=== PATIENT | male | born 1930 | race Caucasian/White ===

== ENCOUNTER 2016-10-04 01:50 | Inpatient (IN) | payer MEDICARE ==
[2016-10-04] MEDS ORDERED: IPRATROPIUM/ALBUTEROL 0.5-2.5 MG/3 ML AMPUL NEB ONE (02:00)
--- NOTE | 2016-10-04 02:00 | ER Document Report ---
ED General - General Stated Complaint: DIFFICULTY BREATHING Time Seen by Provider: 10/04/16 01:56 Notes: Patient is an 85-year-old male who presents with complaint of difficulty breathing that has gradually worsened over the last 24 hours. No fevers at home but when paramedics arrived his temp was 100.9. He did receive breathing treatments which did help. He does have a history of emphysema. He denies any chest pain. No abdominal pain. No leg pain or leg swelling. He does have a sternotomy scar which he says is related to having his pericardium removed in 2003. He is unsure why this was performed. He did receive Solu-Medrol in the ambulance. No other complaints at this time. TRAVEL OUTSIDE OF THE [place] IN LAST 30 DAYS: No - Related Data Allergies/Adverse Reactions: No Known Allergies Allergy (Verified 10/04/16 02:54) Home Medications: Current Home Medications Dutasteride 0.5 mg PO DAILY 10/04/16 [History] Glipizide [Glipizide Xl] 5 mg PO DAILY 10/04/16 [History] Mirabegron [Myrbetriq] 50 mg PO DAILY 10/04/16 [History] Nitroglycerin [Nitrostat] 0.4 mg SL ASDIR PRN 10/04/16 [History] Oxybutynin Chloride 5 mg PO QHS 10/04/16 [History] Potassium Chloride [K-Tab] 10 meq PO DAILY 10/04/16 [History] Past Medical History - Social History Smoking Status: Former Smoker Frequency of alcohol use: None Drug Abuse: None Family History: Reviewed & Not Pertinent - Past Medical History Cardiac Medical History: Reports: Hx Coronary Artery Disease, Hx Heart Attack - 12/02, stent placement, Hx Hypercholesterolemia, Hx Hypertension Pulmonary Medical History: Denies: Hx Tuberculosis Endocrine Medical History: Reports: Hx Diabetes Mellitus Type 2 Past Surgical History: Reports: Hx Cardiac Surgery - 2003 pacemaker, Hx Cholecystectomy, Hx Pacemaker, Hx Tonsillectomy - Immunizations Hx Diphtheria, Pertussis, Tetanus Vaccination: No Review of Systems - Review of Systems Notes: My Normal Review Basic REVIEW OF SYSTEMS: CONSTITUTIONAL : Temp of 100.9 inambulance EENT: Denies eye, ear, throat, or mouth pain or symptoms. Denies nasal or sinus congestion. CARDIOVASCULAR: Denies chest pain. RESPIRATORY: Difficulty breathing. GASTROINTESTINAL: Denies abdominal pain. Denies nausea, vomiting, or diarrhea. Denies constipation. Last BM: GENITOURINARY: Denies difficulty urinating, painful urination, burning, frequency, or blood in urine. MUSCULOSKELETAL: Denies neck or back pain or joint pain or swelling. SKIN: Denies rash or skin lesions. NEUROLOGICAL: Denies altered mental status or loss of consciousness. Denies headache. Denies weakness or paralysis or loss of use of either side. Denies problems with gait or speech. Denies sensory or motor loss. ALL OTHER SYSTEMS REVIEWED AND NEGATIVE. Physical Exam - Vital signs Vitals: Resp Pulse Ox 27 H 88 L 10/04/16 01:54 10/04/16 01:54 - Notes Notes: General Appearance: Well nourished, alert, cooperative, mild to moderate acute distress, no obvious discomfort. Vitals: reviewed, See vital signs table. Head: no swelling or tenderness to the head Eyes: PERRL, EOMI, Conjuctiva clear Mouth: No decreasd moisture Throat: No tonsillar inflammation, No airway obstruction, No lymphadenopathy Neck: Supple, no neck tenderness Lungs: Few scattered wheezes, No rales, No rhonci, No accessory muscle use, good air exchange bilaterally. Heart: Normal rate, Regular rythm, No murmur, no rub Abdomen: Normal BS, soft, No rigidity, No abdominal tenderness, No guarding, no rebound, no abdominal masses, no organomegaly Extremities: strength 5/5 in all extremities, good pulses in all extremities, no swelling or tenderness in the extremities, no edema. Skin: warm, dry, appropriate color, no rash Neuro: speech clear, oriented x 3, normal affect, responds appropriately to questions. Course - Re-evaluation Re-evalutation: 10/04/16 03:11 Patient is doing much improved on the BiPAP. He does have a fever as well as elevated white blood cell count and evidence of pneumonia on chest x-ray. He has had no recent hospital admissions. History is consistent with community- acquired pneumonia and therefore I have started him on Levaquin. I spoke with the hospitalist who agrees to admit the patient. Dictation of this chart was performed using voice recognition software; therefore, there may be some unintended grammatical errors. - Vital Signs Vital signs: Temp Pulse Resp BP Pulse Ox 20 127/74 H 95 10/04/16 02:01 10/04/16 02:01 10/04/16 02:01 - Laboratory Result Diagrams: 10/04/16 02:05 10/04/16 02:05 Laboratory results interpreted by me: 10/04/16 10/04/16 10/04/16 02:05 02:05 02:05 WBC 14.7 H RBC 5.61 H MCH 26.3 L RDW 17.4 H Seg Neuts % (Manual) 85 H Band Neutrophils % 8 H Lymphocytes % (Manual) 3 L Abs Neuts (Manual) 13.7 H Abs Lymphs (Manual) 0.4 L VBG pCO2 34.0 L Carbon Dioxide 21 L Glucose 254 H Alkaline Phosphatase 155 H Creatine Kinase 48 L - EKG Interpretation by Me Additional EKG results interpreted by me: 10/04/16 02:13 EKG is reviewed and interpreted by me. EKG shows a paced rhythm with rate of [address] segment changes consistent with a paced rhythm. NV interval is within normal range. QRS duration and QTc intervals are prolonged. Old EKG for comparison is from January 29, 2012. This old EKG is unfortunately not paced and therefore not like his EKG from today and therefore not a very good comparison. Discharge - Discharge Clinical Impression: Pneumonia Qualifiers: Pneumonia type: due to unspecified organism Laterality: bilateral Lung location : lower lobe of lung Qualified Code(s): J18.9 - Pneumonia, unspecified organism Condition: Stable Disposition: ADMITTED INPATIENT Admitting Provider: Hospitalist Unit Admitted: IMCU Referrals: DARLING JIMENES MD [Primary Care Provider] - Follow up as needed
[2016-10-04] MEDS: MAGNESIUM SULFATE/D5W 100 ML IV SCH ×2 (02:20→03:30)
[2016-10-04 02:22] LABS: VENOUS BLOOD HCO3 21.6 mmol/L (20-32); VENOUS BLOOD PH 7.42 (7.30-7.42)
[2016-10-04 02:32] LABS: HEMATOCRIT 45.6 % (37.9-51.0); HEMOGLOBIN 14.7 g/dL (13.5-17.0); HGB HCT DIFFERENCE -1.5; MEAN CORPUSCULAR HEMOGLOBIN 26.3 pg (27.0-33.4); MEAN CORPUSCULAR HGB CONC 32.3 g/dL (32.0-36.0); MEAN CORPUSCULAR VOLUME 81 fl (80-97); RED BLOOD COUNT 5.61 10^6/uL (4.35-5.55); RED CELL DISTRIBUTION WIDTH 17.4 % (11.5-14.0); WHITE BLOOD COUNT 14.7 10^3/uL (4.0-10.5)
[2016-10-04 02:35] LABS: ALANINE AMINOTRANSFERASE 28 U/L (21-72); ALBUMIN 3.9 g/dL (3.5-5.0); ALKALINE PHOSPHATASE 155 U/L (38-126); ANION GAP 13 (5-19); ASPARTATE AMINO TRANSFERASE 20 U/L (17-59); BILIRUBIN,DIRECT 0.3 mg/dL (0.0-0.4); BILIRUBIN,TOTAL 1.2 mg/dL (0.2-1.3); BLOOD UREA NITROGEN 19 mg/dL (7-20); CARBON DIOXIDE 21 mmol/L (22-30); CHLORIDE 107 mmol/L (98-107); CREATINE KINASE 48 U/L (55-170); CREATININE RESULT 1.02 mg/dL (0.52-1.25); GLUCOSE 254 mg/dL (75-110); POTASSIUM 4.2 mmol/L (3.6-5.0); SODIUM 140.9 mmol/L (137-145)
--- NOTE | 2016-10-04 02:45 | RADIOLOGY REPORT (SQ) ---
EXAM DESCRIPTION: CHEST SINGLE VIEW COMPLETED DATE/TIME: 10/04/2016 2:36 am REASON FOR STUDY: dyspnea, fever COMPARISON: Chest x-ray 01/28/2012, 12/01/2011. EXAM PARAMETERS: NUMBER OF VIEWS: One view. TECHNIQUE: Single frontal radiographic view of the chest acquired. RADIATION DOSE: NA LIMITATIONS: None. FINDINGS: LUNGS AND PLEURA: Hyperlucent lungs, suggestive of emphysema. Bibasilar ground-glass opac ities are noted. No pleural effusion or pneumothorax. MEDIASTINUM AND HILAR STRUCTURES: No masses. Contour normal. HEART AND VASCULAR STRUCTURES: Heart normal in size. No overt vascular congestion. BONES: No acute findings. HARDWARE: There is a left-sided pacemaker. Sternotomy wires are present. IMPRESSION: Emphysema. Bibasilar ground-glass opacities, may represent atelectasis or pneumonia. TECHNICAL DOCUMENTATION: JOB ID: [id number]
[2016-10-04 02:47] LABS: BAND NEUTROPHILS % (MANUAL) 8 % (3-5); BASOPHILS % (MANUAL) 0 % (0-2); CREATINE KINASE MB 1.39 ng/mL (<4.55); EOSINOPHILS % (MANUAL) 0 % (0-6); LYMPHOCYTES % (MANUAL) 3 % (13-45); TOTAL CELLS COUNTED 100; TROPONIN I 0.029 ng/mL
[2016-10-04 02:49] LABS: ANISOCYTOSIS 1+; HYPOCHROMASIA SLIGHT; POIKILOCYTOSIS SLIGHT; TOXIC GRANULATION SLIGHT
[2016-10-04 02:50] LABS: POLYCHROMASIA SLIGHT; TEAR DROP CELLS SLIGHT
[2016-10-04] MEDS ORDERED: LEVOFLOXACIN 750 MG/D5W RTU 150 ML IV ONE (02:52)
[2016-10-04] MEDS ORDERED: DEXTROSE 40% GEL 15 GM TUBE PO PRN ×2 (04:50)
[2016-10-04] MEDS ORDERED: DEXTROSE 50%-WATER 25 GM/50 ML DISP.SYRIN IV PRN ×2 (04:50)
[2016-10-04] MEDS ORDERED: GLUCAGON,HUMAN RECOMB 1 MG INJ IM PRN (04:50)
[2016-10-04] MEDS ORDERED: ALBUTEROL SULFATE 0.083% NEB 2.5 MG/3 ML AMPUL NEB PRN (04:52)
[2016-10-04] MEDS ORDERED: GUAIFENESIN SYRP 200 MG/10 ML UDC PO PRN (04:52)
--- NOTE | 2016-10-04 05:34 | PDOC H&P ---
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 No subjective fever or chills, but when paramedics arrived, his temperature was 100.9. He does admit to a dry cough, but denies nausea vomiting, chest or abdominal pain, diarrhea or dysuria. No leg pain or swelling. Received bronchodilator treatments along with Solu-Medrol en route by EMS but was still in fairly significant respiratory distress upon arrival. However, he has improved nicely with further treatment, including application of BiPAP. Currently resting quietly, pain-free. He denies any use of antibiotics or hospitalization the last 3 months. No prior intubation for respiratory difficulty. Patient has been discussed with emergency room physician who evaluated the patient. Hospitalized on our service for less than 24 hours January 29, 2012 for atypical chest pain. History and physical and discharge summary have been reviewed.. Laboratory results are listed in [facility] and are reviewed. X-ray summary results are listed below, with full report(s) reviewed. . EKG reviewed and compared to prior tracing from January 282011. Social history/personal habits: . 3 children. Retired. Former smoker, but none for the past several years. No alcohol or illicit drug use. No known drug allergies. Home medications initially autopopulated into clipkit may not accurately reflect patient's true medications, dosages, and/or frequencies. xray tech to reconcile medications. Unfortunately, patient not certain of all medications/dosages/frequencies. REVIEW OF SYSTEMS: Constitutional: See history and present illness. Eyes: Wears glasses. ENT: No swallowing problems or complaints. Denies hearing loss. Pulmonary: See history and present illness. Cardiovascular: No current complaints, including chest pain. Gastrointestinal: No current complaints, including nausea or vomiting. Skin: No current complaints, including rashes. Hematologic: Easy bruising. Neurologic: No current complaints, including numbness or tingling. Musculoskeletal: No current or chronic joint complaints, such as arthritis. Psychiatric: Denies anxiety or depression. Endocrine: No current complaints, including polyuria. Genitourinary: No current complaints, including dysuria. PHYSICAL EXAMINATION: 6 feet tall. 90.7 kg. BMI 27.1 kg/m. Pulse 75 and regular. Blood pressure 150/74. 99% saturation on 60% FiO2, BiPAP 12/6. Respirations are 21 and unlabored. Temperature 97.8. Thin otherwise well-developed elderly male appearing approximately his stated age. Pleasant awake alert and cooperative. Appears perhaps slightly fatigued. Mildly anxious, without agitation. Skin is warm and dry. No grossly obvious evidence of rash in areas of skin examined. No subcutaneous nodules palpated. Patient has scattered small very slightly raised erythematous lesions on his anterior lower legs and dorsum of feet. Patient states these have been present for "some time now." Denies itching or pain. Denies bug bites. No evidence of secondary infection of lesions. No blisters or vesicles. ENT: Hearing grossly normal to normal conversation. Tongue midline on protrusion pink and slightly tacky. Exam slightly limited by BiPAP mask with attaching straps. Eyes: No scleral icterus. Pupils equal and reactive to light at 4 mm. [employer] conjunctivae. Neck is supple and nontender to gentle active range of motion and palpation. Midline trachea. No palpable thyroid nodule mass enlargement or tenderness. Lymphatic: No palpable cervical or clavicular nodes. Neck and lymphatic exams limited by patient body habitus. Exam slightly limited by BiPAP mask with attaching straps. Psychiatric: Reasonable insight into acute and chronic medical issues. Oriented to time location and why here. Lungs: Auscultation reveals equal breath sounds bilaterally. No use of accessory respiratory muscles. Slightly coarse breath sounds in left base. Cardiovascular: Heart regular rate and rhythm, without gallop or rub. Subtle 1/ 6 systolic ejection murmur heard at the cardiac apex. No abdominal aortic bruits. No ankle or pedal edema. Palpable dorsalis pedis pulses. Difficult to evaluate for carotid bruit due to airway sounds from BiPAP device. Abdomen:soft slightly distended nontender with positive bowel sounds. Unable to adequately evaluate abdomen for masses or organomegaly due to distention. Extremities: Feet are warm and dry. No calf tenderness to compression. No grossly obvious visual evidence of calf swelling. Gentle manipulation of lower extremities fails to reveal any obvious evidence of injury or instability to knees hips or ankles. Small somewhat chronic appearing ulcer on the lateral aspect of his left great toe with a 2 cm or so surrounding area very mild inflammation. No foul odor. No crepitus fluctuance or expressible discharge. Patient states has been present for approximately 2 weeks. Of note, patient wearing loafers without socks. Neurologic: Moves upper extremities grossly normally. Patellar reflexes absent. Absent Babinski. Light touch is intact at feet. Dorsiflexion and plantarflexion of feet 5 / 5 and symmetric. Past Medical History Cardiac Medical History: Reports: Coronary Artery Disease, Myocardial Infarction - 12/02, stent placement, Hyperlipidema, Hypertension Denies: Atrial Fibrillation, Congestive Heart Failure, DVT, Pulmonary Embolism Pulmonary Medical History: Reports: Chronic Obstructive Pulmonary Disease (COPD) , Sleep Apnea - Noncompliant with CPAP Denies: Asthma, Tuberculosis EENT Medical History: Reports: Eyes - Wears glasses Denies: Ears, Throat Neurological Medical History: Denies: Hemorrhagic CVA, Ischemic CVA, Seizures Endocrine Medical History: Reports: Diabetes Mellitus Type 2 Denies: Diabetes Mellitus Type 1, Hyperthyroidism, Hypothyroidism Malignancy Medical History: Reports: Skin Cancer GI Medical History: Denies: Cirrhosis, Gastroesophageal Reflux Disease, Hepatitis, Peptic Ulcer Disease Musculoskeltal Medical History: Denies: Arthritis Skin Medical History: Reports: Other - Recently excised skin cancer. Psychiatric Medical History: Denies: Alcohol Dependency, Depression, General Anxiety Disorder, Substance Abuse, Tobacco Dependency Hematology: Reports: Other - Easy bruising Infectious Medical History: Denies: Clostridium Difficile, Hepatitis B, Hepatitis C, Methicillin- Resistant Staph Aureus Past Surgical History Past Surgical History: Reports: Cholecystectomy, Coronary Stent, Pacemaker - Pacemaker defibrillator, Tonsillectomy, Other - Pericardectomy 2003 Social History Information Source: Patient, Emergency Med Personnel, [facility] Records Lives with: Family Smoking Status: Former Smoker Frequency of Alcohol Use: None Hx Recreational Drug Use: No Drugs: None Hx Prescription Drug Abuse: No - Advance Directive Resuscitation Status: Do Not Resuscitate Surrogate healthcare decision maker:: Family History Family History: Reviewed & Not Pertinent Parental Family History Reviewed: Yes - Father of stroke. Uncertain cause of mother's . Children Family History Reviewed: Yes - Son with uncertain health problem. Sibling(s) Family History Reviewed.: Yes - Brother at 80 of a stroke. Medication/Allergy Home Medications: Aspirin [Aspirin 81 mg Chewable Tablet] 81 mg PO DAILY 12/01/11 Tamsulosin HCl 0.4 mg PO DAILY 12/01/11 Isosorbide Mononitrate [Imdur] 30 mg PO DAILY 01/29/12 Dutasteride 0.5 mg PO DAILY 10/04/16 Glipizide [Glipizide Xl] 5 mg PO DAILY 10/04/16 Mirabegron [Myrbetriq] 50 mg PO DAILY 10/04/16 Nitroglycerin [Nitrostat] 0.4 mg SL ASDIR PRN 10/04/16 Oxybutynin Chloride 5 mg PO QHS 10/04/16 Potassium Chloride [K-Tab ER] 10 meq PO DAILY 10/04/16 Albuterol Sulfate [Ventolin 0.083% Neb 2.5 mg/3 mL Ampul] 2.5 mg NEB RTQ4HP PRN vial.neb 10/07/16 Azithromycin [Zithromax 250 mg Tablet] 500 mg PO DAILY #5 tablet 10/07/16 Cefuroxime Axetil [Ceftin 250 mg Tablet] 250 mg PO BID #14 tablet 10/07/16 Prednisone [Deltasone 20 mg Tablet] 40 mg PO DAILY #3 tablet 10/07/16 Allergies/Adverse Reactions: No Known Allergies Allergy (Verified 10/04/16 02:54) Physical Exam Vital Signs: Temp Pulse Resp BP Pulse Ox 97.8 F 23 H 150/74 H 98 10/04/16 03:01 10/04/16 04:36 10/04/16 04:01 10/04/16 04:36 Intake & Output 10/03/16 10/04/16 10/05/16 00:59 00:59 00:59 Weight 90.718 kg Results Impressions: Chest X-Ray 10/04/16 01:56 IMPRESSION: Emphysema. Bibasilar ground-glass opacities, may represent atelectasis or pneumonia. Assessment & Plan - Diagnosis (1) Acute on chronic respiratory failure with hypoxemia Is this a current diagnosis for this admission?: YesPlan: Patient will be admitted under COPD exacerbation and pneumonia protocol. Incentive spirometry twice a day. Scheduled DuoNeb's. As needed albuterol nebs. Prednisone. Prevacid for gastritis prophylaxis. Continue BiPAP. Follow-up venous gas. Wean as tolerated. Antibiotics will consist of Rocephin and intravenous Zithromax.. I strongly encouraged patient to notify staff should patient feel that breathing is worsening. I have strongly encouraged patient not to get out of bed without notifying staff , to avoid a fall with injury. Knee high SCDs for DVT prophylaxis, along with subcutaneous Lovenox. Impression and plans were discussed with patient who concurs. Time spent in evaluation and management of patient: 68 critical-care minutes. (2) Basal pneumonia of both lungs Is this a current diagnosis for this admission?: Yes (3) COPD exacerbation Is this a current diagnosis for this admission?: Yes (4) DNR (do not resuscitate) Is this a current diagnosis for this admission?: YesPlan: Implications of DO NOT RESUSCITATE/DO NOT INTUBATE status discussed with patient. Discussed in layperson's terms. Implications understood. Patient is the health care decision maker. Patient conversation is lucid and appropriate. Patient desires DO NOT RESUSCITATE/DO NOT INTUBATE status. Will honor patient wishes. (5) Diabetes mellitus type 2 in nonobese Is this a current diagnosis for this admission?: YesPlan: Ice chips only while on BiPAP. Accu-Cheks with appropriate sliding scale coverage. Resume home medications as appropriate once these have been determined and reviewed. (6) Skin ulcer of left great toe Is this a current diagnosis for this admission?: YesPlan: Surgery consult. - Time Anticipated discharge: Home Within: within 72 hours - Inpatient Certification Based on my medical assessment, after consideration of the patient's comorbidities, presenting symptoms, or acuity I expect that the services needed warrant INPATIENT care.: Yes I certify that my determination is in accordance with my understanding of Medicare's requirements for reasonable and necessary INPATIENT services [42 CFR 412.3e].: Yes Medical Necessity: Significant Comorbidiites Make Outpatient Treatment Too Risky , Need Close Monitoring Due to Risk of Patient Decompensation, Need For IV Fluids, Need For Continuous Telemetry Monitoring, Need for Nebulizer Therapy and Monitoring of Response, Need for IV Antibiotics, Risk of Diagnosis Which Will Require Inpatient Eval/Care/Monitoring Post Hospital Care: D/C or Transfer Summary
[2016-10-04] MEDS: LANSOPRAZOLE 30 MG TAB.RAP.DR PO SCH (06:58)
[2016-10-04 08:36] LABS: VENOUS BLOOD BASE EXCESS -5.3 mmol/L; VENOUS BLOOD PCO2 38.5 mmHg (35-63); VENOUS BLOOD PH 7.33 (7.30-7.42)
[2016-10-04] MEDS: IPRATROPIUM/ALBUTEROL 0.5-2.5 MG/3 ML AMPUL NEB SCH ×3 (08:47→19:49)
[2016-10-04 08:56] LABS: ANION GAP 14 (5-19); BLOOD UREA NITROGEN 19 mg/dL (7-20); CALCIUM 8.8 mg/dL (8.4-10.2); CARBON DIOXIDE 18 mmol/L (22-30); CHLORIDE 104 mmol/L (98-107); CREATININE RESULT 0.97 mg/dL (0.52-1.25); GLUCOSE 363 mg/dL (75-110); POTASSIUM 4.6 mmol/L (3.6-5.0); SODIUM 135.9 mmol/L (137-145)
[2016-10-04] MEDS: CEFTRIAXONE 1 GM/D5W RTU 50 ML IV SCH (09:12)
[2016-10-04] MEDS: ENOXAPARIN SODIUM INJ 40 MG/0.4 ML DISP.SYRIN SUBCUT SCH (09:12)
[2016-10-04] MEDS: PREDNISONE 20 MG TABLET PO SCH (09:12)
--- NOTE | 2016-10-04 10:13 | EKG REPORT ---
SEVERITY:- ABNORMAL ECG - ATRIAL-SENSED VENTRICULAR-PACED RHYTHM : Confirmed by: Mykel Beck MD 04-Oct-2016 10:13:17
[2016-10-04] MEDS ORDERED: NITROGLYCERIN 0.4 MG/TAB 25 TAB/BOTTLE SL PRN (10:14)
[2016-10-04] MEDS: AZITHROMYCIN 500 MG in DEXTROSE 5%-WATER 250 ML IV SCH (10:15)
[2016-10-04] MEDS ORDERED: FUROSEMIDE INJ/PF 40 MG/4 ML SDV IV ONE (10:45)
--- NOTE | 2016-10-04 11:29 | PROGRESS NOTE E ---
Progress Note NAME: OG CASTELLANOS : 1930 AGE: 85Y DATE: 10/04/2016 ROOM: 308 SUBJECTIVE: The patient is lying in bed. He states he does feel better today than he did when he came in. The patient is winded but is able to have a discussion, just takes intermittent breaths extra. The patient denies any nausea or vomiting. No diarrhea, dizziness, chest pain. No fever or chills. The patient has been febrile. His blood pressures have been in a good range and the patient does not voice any other concerns at this time. REVIEW OF SYSTEMS: Rest of the review of systems negative. MEDICATIONS: Have been reviewed. OBJECTIVE: GENERAL: The patient is a very pleasant 85-year-old male who is awake and alert. He is oriented to person, place, time, and situation. He is verbal, conversational, ambulatory, and does not appear to be in any acute distress. VITAL SIGNS: Temperature 97.8, pulse 71, respirations 18, blood pressure 151/82, oxygen saturation is 92% on 2 L nasal cannula. SKIN: Warm and dry. No rash. Not diaphoretic. HEENT: Pupils equal, round, reactive to light and accommodation. Conjunctivae are pink. There is no JVP. CARDIOVASCULAR: Heart is regular. There is no murmur or rub. CHEST: Diminished. Fine basal crackles are noted. Symmetrical, unlabored. ABDOMEN: Soft, nontender, nondistended. BACK: No CVA tenderness or sacral edema. EXTREMITIES: No clubbing, cyanosis, or edema. PSYCHIATRIC: Appropriate affect. Pleasant mood. DIAGNOSTICS: Lab values are as follows: Hematology obtained on 10/04/2016: WBCs are 14.7, hemoglobin is 14.7, hematocrit 45.6, platelet count is 157,000. Chemistry obtained on 10/04/2016: Sodium is 135, potassium 4.6, chloride is 104, carbon dioxide 18, BUN 19, creatinine is 0.97, glucose 363, calcium is 8.8, magnesium is 2.0. Blood cultures obtained on 10/04/2016 reveal no growth. IMPRESSION AND PLAN: 1. COMMUNITY-ACQUIRED PNEUMONIA. Will continue current antibiotic coverage as well as pulmonary toilet and follow. 2. EMPHYSEMA. Will continue the patient's home medications. 3. [id number] HYPOXEMIC RESPIRATORY FAILURE. The patient overall is much improved. Have discontinued the BiPAP and will continue nasal cannula with a goal of 88 and 92%. 4. SEPSIS PRESENT ON ADMISSION. The patient had impressive bandemia and overall the patient is much more stable. 5. CORONARY ARTERY DISEASE. Will continue the patient's home medications. Given the patient's will diurese patient with Lasix and monitor. 6. DIABETES MELLITUS TYPE 2. Will continue Accu-Cheks once the patient is taking p.o., will do before meals and at bedtime and also have sliding scale coverage. 7. SKIN ULCER OF THE LEFT GREAT TOE. Do appreciate Surgicalist input with this. DISPOSITION: The patient is a DO NOT RESUSCITATE/DO NOT INTUBATE. Pending patient's symptomatology and diagnostic findings, will reevaluate in the a.m. Time spent on this followup including assessment, plan, physical examination, patient education, and review of records is 35 minutes. DICTATING PHYSICIAN: ARMANI GARRISON NP [id number] PHY#: [id number] ID: [id number] JOB#: [id number] ACCT: [id number] cc: > MTDD
[2016-10-04] MEDS: INSULIN LISPRO 100 UNIT/ML 3 ML VIAL SUBCUT PRN ×2 (12:03→16:41)
--- NOTE | 2016-10-04 18:59 | CONSULTATION REPORT E ---
Consultation Report NAME: OG CASTELLANOS : 1930 AGE: 85Y DATE: 10/04/2016 308 A TO: FROYLAN GAYLE M.D. FROM: SALEEM GUTIERREZ M.D. Requesting Physician REASON FOR CONSULTATION: Patient with small ulcer on the left big toe on the medial side. HISTORY OF PRESENT ILLNESS: This is an 85-year-old male with history of COPD, coronary artery disease, status post previous myocardial infarction, post pericardiectomy in 2003, obstructive sleep apnea with noncompliant CPAP, admitted through the emergency room for increasing shortness of breath and fever, noted pneumonia on an x-ray. Patient apparently had his left big toe bunion or a thickened callous on the left big toe on the medial aspect of the mid big toe done at a nail salon about two weeks ago. Patient claims it bled and then had a small ulcer. The ulcer has not increased in size and has not gotten any worse, and also appears to have not gotten any better. PAST MEDICAL HISTORY: 1. Myocardial infarction, coronary stent placement, hyperlipidemia, and hypertension. 2. History of COPD and sleep apnea. 3. EENT - wears eyeglasses and denies hearing problems. 4. Neurologic history - no CVA or seizures. 5. Endocrine - reports diabetes mellitus type 2. 6. Malignancy history - reports skin cancer. 7. GI history - denies any peptic ulcer disease or reflux. 8. Musculoskeletal - denies arthritis. 9. Hematology - easy bruisability. PAST SURGICAL HISTORY: 1. Cholecystectomy. 2. Coronary stent placement. 3. Pacemaker and AICD placement. 4. Tonsillectomy. 5. Pericardiectomy in 2003. SOCIAL HISTORY: Patient used to be a heavy smoker but stopped about 6 years ago. Denies alcohol or recreational drug use. Lives with his family. FAMILY HISTORY: *------* of a stroke. *------* of uncertain cause. MEDICATIONS: 1. Aspirin. 2. Tamsulosin. 3. Imdur. 4. Dutasteride. 5. Glipizide. 6. Mirabegron. 7. Nitrostat. 8. Oxybutynin chloride. 9. Potassium chloride. ALLERGIES: None known. PHYSICAL EXAMINATION: GENERAL: Well-developed, well-nourished, 85-year-old male, alert and oriented with some mild shortness of breath. NECK: Supple, no thyromegaly. LUNGS: Clear. Decreased breath sounds in the bases. HEART: Regular sinus rhythm. ABDOMEN: Soft, nontender. EXTREMITIES: Palpable ankle pulses. Left posterior tibial artery is palpable. Dorsalis pedis artery is faint. There is a superficial ulcer on the left big toe on the mid part. The opposite toe has a callous on the medial part. This was apparently the site that was scraped or sandpapered at the nail salon about two weeks ago on his left big toe. There is an ulcer about 8 mm in diameter that is relatively dry. The surrounding area is cool and pale, roughly about 5 mm in diameter. There is no drainage or tenderness at this site. The rest of the toe is nice and warm with good capillary refill. IMPRESSION: Ulceration along the left big toe that appears to be not infected at this time. Main concern is the vascularity, though it has not worsened in the past two weeks and it has not gotten any better. There is no evidence of definite infection at this time. I would just recommend for it to be cleansed with saline once a day. He [facility]. Also the concern is a possible eventual infection because of his diabetes. The antibiotic that he is getting right now for his pneumonia may be helping the ulcer on the left big toe. DICTATING PHYSICIAN: FROYLAN GAYLE M.D. [id number] PHY#: [id number] ID: [id number] JOB#: [id number] ACCT: [id number] cc:FORYLAN GAYLE M.D. >
[2016-10-04] MEDS: OXYBUTYNIN CHLORIDE 5 MG TABLET PO SCH (21:21)
[2016-10-05] MEDS: INSULIN LISPRO 100 UNIT/ML 3 ML VIAL SUBCUT PRN ×5 (02:32→21:33)
[2016-10-05] MEDS: LANSOPRAZOLE 30 MG TAB.RAP.DR PO SCH (06:44)
[2016-10-05 07:01] LABS: HEMATOCRIT 44.8 % (37.9-51.0); HGB HCT DIFFERENCE -2.8; MEAN CORPUSCULAR HGB CONC 31.3 g/dL (32.0-36.0); MEAN CORPUSCULAR VOLUME 83 fl (80-97); RED CELL DISTRIBUTION WIDTH 17.8 % (11.5-14.0)
[2016-10-05 07:31] LABS: ALANINE AMINOTRANSFERASE 26 U/L (21-72); ALBUMIN 3.8 g/dL (3.5-5.0); ALKALINE PHOSPHATASE 117 U/L (38-126); ANION GAP 12 (5-19); ASPARTATE AMINO TRANSFERASE 17 U/L (17-59); BILIRUBIN,DIRECT 0.3 mg/dL (0.0-0.4); BILIRUBIN,TOTAL 1.1 mg/dL (0.2-1.3); BLOOD UREA NITROGEN 23 mg/dL (7-20); CALCIUM 9.4 mg/dL (8.4-10.2); CARBON DIOXIDE 23 mmol/L (22-30); CHLORIDE 104 mmol/L (98-107); CREATININE RESULT 0.98 mg/dL (0.52-1.25); GLUCOSE 173 mg/dL (75-110); POTASSIUM 4.4 mmol/L (3.6-5.0); SODIUM 139.3 mmol/L (137-145)
[2016-10-05 07:35] LABS: BAND NEUTROPHILS % (MANUAL) 4 % (3-5); BASOPHILS % (MANUAL) 0 % (0-2); EOSINOPHILS % (MANUAL) 0 % (0-6); LYMPHOCYTES % (MANUAL) 3 % (13-45); TOTAL CELLS COUNTED 100
[2016-10-05 07:37] LABS: ANISOCYTOSIS SLIGHT; HYPOCHROMASIA SLIGHT
[2016-10-05] MEDS: IPRATROPIUM/ALBUTEROL 0.5-2.5 MG/3 ML AMPUL NEB SCH ×3 (08:37→20:09)
[2016-10-05] MEDS: ISOSORBIDE MONONITRATE 30 MG TAB.ER.24H PO SCH (11:17)
[2016-10-05] MEDS: ASPIRIN 81 MG TABLET, CHEWABLE PO SCH (11:18)
[2016-10-05] MEDS: PREDNISONE 20 MG TABLET PO SCH (11:18)
[2016-10-05] MEDS: TAMSULOSIN HCL 0.4 MG CAP.SR.24H PO SCH (11:18)
[2016-10-05] MEDS: POTASSIUM CHLORIDE 10 MEQ TABLET.SA PO SCH (11:18)
[2016-10-05] MEDS: GLIPIZIDE XL 5 MG TAB.ER.24 PO SCH (11:18)
[2016-10-05] MEDS: CEFTRIAXONE 1 GM/D5W RTU 50 ML IV SCH (11:19)
[2016-10-05] MEDS: ENOXAPARIN SODIUM INJ 40 MG/0.4 ML DISP.SYRIN SUBCUT SCH (11:25)
[2016-10-05] MEDS: DUTASTERIDE 0.5 MG CAPSULE PO SCH (11:28)
[2016-10-05] MEDS: AZITHROMYCIN 500 MG in DEXTROSE 5%-WATER 250 ML IV SCH (12:00)
[2016-10-05] MEDS ORDERED: PREDNISONE 20 MG TABLET PO SCH (13:00)
--- NOTE | 2016-10-05 14:23 | PROGRESS NOTE E ---
Progress Note NAME: OG CASTELLANOS : 1930 AGE: 85Y DATE: 10/05/2016 ROOM: 308 SUBJECTIVE: The patient is lying in bed. He states that he does feel better today than he did yesterday. He has had a strong cough but has not been able to produce much sputum. He denies any nausea, vomiting, diarrhea. No dizziness, chest pain. No fevers, chills. The patient has been afebrile, blood pressure has been in a good range. The patient does not voice any other concerns at this time. REVIEW OF SYSTEMS: Rest of review of systems negative. MEDICATIONS: Reviewed. OBJECTIVE: GENERAL: The patient is an 85-year-old male who is awake, alert and oriented to person, place, time, situation. He is verbal and conversational. Does not appear to be in any acute distress. VITAL SIGNS: Temperature is 97.8, pulse 72, respirations 16, blood pressure 166/59, oxygen saturation 95% on 1.5 L. SKIN: Warm and dry, no rashes. Not diaphoretic. HEENT: Pupils equal, round, reactive to light and accommodation. Conjunctivae pink. No JVD. CARDIOVASCULAR: Heart is regular. No murmur or rub. CHEST: Diminished, symmetrical and unlabored. ABDOMEN: Soft, nontender, nondistended. BACK: No CVA tenderness or sacral edema. EXTREMITIES: No clubbing, cyanosis, edema. PSYCHIATRIC: Appropriate affect. Pleasant mood. DIAGNOSTIC STUDIES: Lab values are as follows: Hematology obtained on 10/05/2016: WBCs are 20, hemoglobin is 14.0, hematocrit is 44.8, platelet count is 169,000. Chemistry obtained on 10/05/2016: Sodium is 139, potassium 4.4, chloride is 104, carbon dioxide 23, BUN 23, creatinine is 0.98, glucose 173, calcium is 9.8. Bilirubin is 1.1. AST 17, ALT is 16, alk phos 117, total protein 7.0, albumin 3.8. Blood cultures obtained on 10/04/2016 reveal no growth. IMPRESSION AND PLAN: 1. COMMUNITY ACQUIRED PNEUMONIA. The patient clinically appears much improved. Will continue pulmonary toilet and follow. 2. EMPHYSEMA. Will continue home medication. 3. VBAGB-RZ-LTTGVCH HYPOXEMIA AND RESPIRATORY FAILURE. Overall much improved. The patient is now tolerating nasal cannula. 4. SEPSIS PRESENT ON ADMISSION. The patient's bandemia has improved; however, white count has trended up. The patient has been afebrile. Overall appears much more improved. Will repeat labs in the morning and follow. 5. CORONARY ARTERY DISEASE. Will continue the patient's home medication. The patient was diuresed with Lasix which appears to have improved. 6. DIABETES MELLITUS TYPE 2. Will continue Accu-Cheks, as well as sliding scale coverage. 7. SKIN ULCERATION OF THE LEFT GREAT TOE. Do appropriate Surgical's input. DISPOSITION: The patient is a DO NOT RESUSCITATE/DO NOT INTUBATE. Pending the patient's symptomatology and diagnostic findings, will reevaluate in the a.m. Time spent on this followup including assessment and plan, physical examination, patient education, and review of records is 20 minutes. DICTATING PHYSICIAN: ARMANI GARRISON NP [id number] PHY#: [id number] ID: [id number] JOB#: [id number] ACCT: [id number] cc: >
--- NOTE | 2016-10-05 17:49 | PROGRESS NOTE E ---
Progress Note NAME: OG CASTELLANOS : 1930 AGE: 85Y DATE: 10/05/2016 ROOM: 308 The ulcer on his left big toe remains nontender. However, there appears to be a little bit more pallor around the area of the ulcer. Because of this, I will hold the placement of the wet-to-dry dressing because the wet-to-dry dressing may be macerating the ulcer. I told the patient again that it is important that this is followed up [facility] the [facility] as soon as discharged. DICTATING PHYSICIAN: FROYLAN GAYLE M.D. [id number] PHY#: [id number] ID: [id number] JOB#: [id number] ACCT: [id number] cc: >
[2016-10-05] MEDS: DIPHENHYDRAMINE HCL 25 MG CAPSULE PO SCH (21:31)
[2016-10-05] MEDS: OXYBUTYNIN CHLORIDE 5 MG TABLET PO SCH (21:32)
[2016-10-06 05:36] LABS: HEMATOCRIT 39.4 % (37.9-51.0); HEMOGLOBIN 12.9 g/dL (13.5-17.0); HGB HCT DIFFERENCE -0.7; MEAN CORPUSCULAR HEMOGLOBIN 26.5 pg (27.0-33.4); MEAN CORPUSCULAR HGB CONC 32.7 g/dL (32.0-36.0); MEAN CORPUSCULAR VOLUME 81 fl (80-97); RED BLOOD COUNT 4.86 10^6/uL (4.35-5.55); RED CELL DISTRIBUTION WIDTH 17.9 % (11.5-14.0); WHITE BLOOD COUNT 13.6 10^3/uL (4.0-10.5)
[2016-10-06 05:40] LABS: ALANINE AMINOTRANSFERASE 27 U/L (21-72); ALBUMIN 3.4 g/dL (3.5-5.0); ALKALINE PHOSPHATASE 106 U/L (38-126); ANION GAP 12 (5-19); ASPARTATE AMINO TRANSFERASE 16 U/L (17-59); BILIRUBIN,DIRECT 0.3 mg/dL (0.0-0.4); BILIRUBIN,TOTAL 0.7 mg/dL (0.2-1.3); BLOOD UREA NITROGEN 26 mg/dL (7-20); CALCIUM 9.1 mg/dL (8.4-10.2); CARBON DIOXIDE 20 mmol/L (22-30); CHLORIDE 107 mmol/L (98-107); CREATININE RESULT 0.92 mg/dL (0.52-1.25); GLUCOSE 174 mg/dL (75-110); MAGNESIUM 2.3 mg/dL (1.6-2.3); POTASSIUM 4.7 mmol/L (3.6-5.0); SODIUM 139.3 mmol/L (137-145); TOTAL PROTEIN 6.7 g/dL (6.3-8.2)
[2016-10-06 06:12] LABS: BAND NEUTROPHILS % (MANUAL) 1 % (3-5); BASOPHILS % (MANUAL) 0 % (0-2); EOSINOPHILS % (MANUAL) 0 % (0-6); LYMPHOCYTES % (MANUAL) 8 % (13-45); TOTAL CELLS COUNTED 100
[2016-10-06 06:13] LABS: ANISOCYTOSIS 1+; HYPOCHROMASIA 1+; POIKILOCYTOSIS SLIGHT
[2016-10-06 06:14] LABS: MICROCYTOSIS SLIGHT; OVALOCYTES SLIGHT
[2016-10-06] MEDS: LANSOPRAZOLE 30 MG TAB.RAP.DR PO SCH (06:45)
[2016-10-06] MEDS: IPRATROPIUM/ALBUTEROL 0.5-2.5 MG/3 ML AMPUL NEB SCH ×3 (08:19→20:03)
[2016-10-06] MEDS: CEFTRIAXONE 1 GM/D5W RTU 50 ML IV SCH (09:02)
--- NOTE | 2016-10-06 09:04 | RADIOLOGY REPORT (SQ) ---
EXAM DESCRIPTION: CHEST PA/LAT COMPLETED DATE/TIME: 10/06/2016 8:03 am REASON FOR STUDY: FU PNA COMPARISON: January 2012 EXAM PARAMETERS: NUMBER OF VIEWS: two views TECHNIQUE: Digital Frontal and Lateral radiographic views of the chest acquired. RADIATION DOSE: NA LIMITATIONS: none FINDINGS: LUNGS AND PLEURA: Patchy airspace densities are identified in the lower lung crockett which has the appearance of an acute process superimposed on chronic underlying changes. No pleural effusi ons are identified. No pneumothorax is seen. MEDIASTINUM AND HILAR STRUCTURES: No masses or contour abnormalities. HEART AND VASCULAR STRUCTURES: Cardiac silhouette is mildly enlarged. There is mild pulmonary vascul ar congestion. BONES: No acute findings. HARDWARE: Patient is status post median sternotomy. AICD device is unchanged in position. OTHER: No other significant finding. IMPRESSION: Patchy airspace densities in the lower lung crockett as noted above which has the appearan ce of an acute process superimposed on chronic underlying changes. Other findings as noted above TECHNICAL DOCUMENTATION: JOB ID: [id number] [employer]- All Rights Reserved
[2016-10-06] MEDS: ASPIRIN 81 MG TABLET, CHEWABLE PO SCH (09:06)
[2016-10-06] MEDS: ISOSORBIDE MONONITRATE 30 MG TAB.ER.24H PO SCH (09:06)
[2016-10-06] MEDS: GLIPIZIDE XL 5 MG TAB.ER.24 PO SCH (09:06)
[2016-10-06] MEDS: POTASSIUM CHLORIDE 10 MEQ TABLET.SA PO SCH (09:07)
[2016-10-06] MEDS: TAMSULOSIN HCL 0.4 MG CAP.SR.24H PO SCH (09:07)
[2016-10-06] MEDS: DUTASTERIDE 0.5 MG CAPSULE PO SCH (09:07)
[2016-10-06] MEDS: AZITHROMYCIN 500 MG in DEXTROSE 5%-WATER 250 ML IV SCH (09:15)
[2016-10-06] MEDS: ENOXAPARIN SODIUM INJ 40 MG/0.4 ML DISP.SYRIN SUBCUT SCH (09:15)
[2016-10-06] MEDS ORDERED: PREDNISONE 20 MG TABLET PO SCH (10:00)
--- NOTE | 2016-10-06 13:18 | XCELERA REPORT ---
[address] [address] Transthoracic Echocardiogram Report Name: OG CASTELLANOS Age: 85 yrs Gender: Male : 1930 Patient Status: Inpatient Patient Location: 3N\S\308\S\A Study Date: 10/06/2016 10:37 AM Height: 72 in Weight: 200 lb BSA: 2.1 m2 Procedure: A two-dimensional transthoracic echocardiogram with color flow and Doppler was performed. Study Quality: Technically suboptimal. Reason For Study: CHF History: CHF. Ordering Physician: ARMANI GARRISON Performed By: Danay Melton Interpretation Summary The left ventricle is moderately dilated. There is normal left ventricular wall thickness. LV EF is 25% to 30% Left ventricular systolic function is severely reduced. LV diastolic function not assessed. There is severe global hypokinesis of the left ventricle. There is no thrombus. The right ventricle is not well visualized secondary to technical limitations There is a pacemaker lead in the right ventricle. The right atrium is normal. The left atrium is moderately dilated. There is no evidence of mitral valve prolapse. There is no mitral valve stenosis. There is a mild amount of mitral regurgitation There is no aortic valvular vegetation. The aortic valve is mildly calcified There is no aortic valve stenosis There is no LVOT obstruction. No aortic regurgitation is present. There is no tricuspid stenosis. There is a mild amount of tricuspid regurgitation Moderate Pulmonary Hypertension.RVSP is 55 to 60 mm of Hg , with RA mean of 5 to 10. There is no pulmonic valvular stenosis. There is a mild amount of pulmonic regurgitation The aortic root is normal size. MMode/2D Measurements \T\ Calculations RVDd: 3.6 cm LVIDd: 5.1 cm FS: 14.9 % Ao root diam: 3.5 cm IVSd: 1.0 cm LVIDs: 4.3 cm EDV(Teich): 122.0 ml LVPWd: 0.96 cmESV(Teich): 83.6 ml Ao root area: 9.6 cm2 EF(Teich): 31.5 % LA dimension: 4.8 cm LVOT diam: 2.4 cm LVOT area: 4.4 cm2 Doppler Measurements \T\ Calculations MV E max kaleb: MV P1/2t max kaleb: Ao V2 max: LV V1 max P.4 cm/sec 125.4 cm/sec 137.4 cm/sec 3.9 mmHg MV A max kaleb: MV P1/2t: 35.2 msec Ao max PG: LV V1 max: 122.4 cm/sec MVA(P1/2t): 6.2 cm2 7.5 mmHg 98.2 cm/sec MV E/A: 1.0 MV dec slope: DREAD(V,D): 3.1 cm2 1043 cm/sec2 PA V2 max: PI end-d kaleb: TR max kaleb: 112.5 cm/sec 191.4 cm/sec 352.9 cm/sec PA max P.1 mmHg TR max P.8 mmHg Left Ventricle The left ventricle is moderately dilated. There is normal left ventricular wall thickness. LV EF is 25% to 30%. Left ventricular systolic function is severely reduced. LV diastolic function not assessed. There is severe global hypokinesis of the left ventricle. There is no thrombus. Right Ventricle The right ventricle is not well visualized secondary to technical limitations. There is a pacemaker lead in the right ventricle. Atria The right atrium is normal. The left atrium is moderately dilated. Mitral Valve There is no evidence of mitral valve prolapse. There is no vegetation seen on the mitral valve. There is no mitral valve stenosis. There is a mild amount of mitral regurgitation. Aortic Valve The aortic valve is trileaflet. The aortic valve opens well. The aortic valve is mildly calcified. There is no aortic valvular vegetation. There is no aortic valve stenosis. There is no LVOT obstruction. No aortic regurgitation is present. Tricuspid Valve There is no tricuspid stenosis. There is a mild amount of tricuspid regurgitation. Moderate Pulmonary Hypertension.RVSP is 55 to 60 mm of Hg , with RA mean of 5 to 10. Pulmonic Valve There is no pulmonic valvular stenosis. There is a mild amount of pulmonic regurgitation. Great Vessels The aortic root is normal size. Effusions There is no pericardial effusion. : ARMANI GARRISON > Fifi Capone
[2016-10-06] MEDS: INSULIN LISPRO 100 UNIT/ML 3 ML VIAL SUBCUT PRN ×3 (13:32→23:08)
[2016-10-06] MEDS ORDERED: LISINOPRIL 10 MG TABLET PO ONE (14:25)
[2016-10-06] MEDS ORDERED: FUROSEMIDE INJ/PF 40 MG/4 ML SDV IV ONE (14:26)
--- NOTE | 2016-10-06 16:20 | RADIOLOGY REPORT (SQ) ---
EXAM DESCRIPTION: CTA CHEST COMPLETED DATE/TIME: 10/06/2016 3:41 pm REASON FOR STUDY: Hypoxia, persistant PNA, Dyspnea COMPARISON: Chest films 10/04/2016, 01/28/2012 TECHNIQUE: CT scan of the chest performed using helical scanning technique with dynamic intravenous contrast injection. Images reviewed with lung, soft tissue and bone windows. Reconstructed coronal and sagittal MPR images reviewed. Additional 3 dimensional post-processing performed to develop Maximal Intensity Projection images (IL P). All images stored on PACS. All CT scanners at this facility use dose modulation, iterative reconstruction, and/or weight based d osing when appropriate to reduce radiation dose to as low as reasonably achievable (ALARA). [facility]: Dose Right [facility]: CareDose [facility]: Dose Right [facility]: Teradose 4D [facility]: TranquilMed CONTRAST TYPE AND DOSE: contrast/concentration: Isovue 370.00 mg/ml; Total Contrast Delivered: 69.0 ml; Total Saline Delivered: 110.1 ml RENAL FUNCTION: Creatinine 0.92 RADIATION DOSE: Up-to-date CT equipment and radiation dose reduction techniques were employed. CTDIv ol: 9.4 - 15.6 mGy. DLP: 626 mGy-cm. . LIMITATIONS: None. FINDINGS: LUNGS AND PLEURA: Obstructive lung disease at the apices. There is mild increased interst itial markings around the periphery of both lung bases from pulmonary fibrosis. A 1.5 x 0.8 cm subpleural nodule is present in the right upper lobe, deep to the right 4th rib, best shown on axial image 28 and coronal image 38. There are multiple less than 5 mm noncalcified smooth round nodules in the right middle lobe, right l ower lobe, and left lower lobe. 7 mm noncalcified subpleural nodule left lower lobe just above the h emidiaphragm axial image 47. These are all abnormal but nonspecific. No pleural effusions. AORTA AND GREAT VESSELS: No thoracic abdominal aortic aneurysm. HEART: No pericardial effusion. Very heavily calcified left main coronary artery. Old sternotomy fo r CABG. Left-sided dual lead pacemaker. PULMONARY ARTERIES: No emboli visualized in the main pulmonary arteries or the segmental branches. HILAR AND MEDIASTINAL STRUCTURES: No identified masses or abnormal nodes. HARDWARE: None in the chest. UPPER ABDOMEN: 1.5 x 1.4 cm pericardial phrenic lymph node axial image 96. Post cholecystectomy. 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 No adenopathy. BONES: No acute or significant finding. 3D MIPS: Confirm above findings. OTHER: No other significant finding. IMPRESSION: Indeterminate nodule right upper lobe, deep to the right 4th rib areas outpatient PET-CT recommended for follow-up. No acute pulmonary infiltrates. No pleural effusion. No pneumothorax. COPD. TECHNICAL DOCUMENTATION: JOB ID: [id number] Quality ID # [id number]: Final reports with documentation of one or more dose reduction techniques (e.g., Au tomated exposure control, adjustment of the mA and/or kV according to patient size, use of iterative reconstruction technique) 2010 [employer]- All Rights Reserved
[2016-10-06] MEDS: LISINOPRIL 10 MG TABLET PO SCH (21:26)
[2016-10-06] MEDS: DIPHENHYDRAMINE HCL 25 MG CAPSULE PO SCH (21:27)
[2016-10-06] MEDS: OXYBUTYNIN CHLORIDE 5 MG TABLET PO SCH (21:29)
[2016-10-07] MEDS: LANSOPRAZOLE 30 MG TAB.RAP.DR PO SCH (05:02)
[2016-10-07] MEDS ORDERED: PREDNISONE 20 MG TABLET PO SCH (07:53)
[2016-10-07] MEDS: IPRATROPIUM/ALBUTEROL 0.5-2.5 MG/3 ML AMPUL NEB SCH ×2 (07:56→14:27)
[2016-10-07] MEDS: CEFTRIAXONE 1 GM/D5W RTU 50 ML IV SCH (09:30)
[2016-10-07] MEDS: TAMSULOSIN HCL 0.4 MG CAP.SR.24H PO SCH (09:31)
[2016-10-07] MEDS: POTASSIUM CHLORIDE 10 MEQ TABLET.SA PO SCH (09:31)
[2016-10-07] MEDS: LISINOPRIL 10 MG TABLET PO SCH (09:31)
[2016-10-07] MEDS: ISOSORBIDE MONONITRATE 30 MG TAB.ER.24H PO SCH (09:31)
[2016-10-07] MEDS: ASPIRIN 81 MG TABLET, CHEWABLE PO SCH (09:32)
[2016-10-07] MEDS: GLIPIZIDE XL 5 MG TAB.ER.24 PO SCH (09:32)
[2016-10-07] MEDS: DUTASTERIDE 0.5 MG CAPSULE PO SCH (09:33)
[2016-10-07] MEDS: ENOXAPARIN SODIUM INJ 40 MG/0.4 ML DISP.SYRIN SUBCUT SCH (09:34)
[2016-10-07] MEDS ORDERED: AZITHROMYCIN 250 MG TABLET PO SCH (10:00)
--- NOTE | 2016-10-07 16:21 | PDOC DISCHARGE SUMMARY ---
General - Admit/Disc Date/PCP Admission Date/Primary Care Provider: 10/04/16 04:52 DARLING JIMENES MD Discharge Date: 10/07/16 - Discharge Diagnosis (1) Acute on chronic respiratory failure with hypoxemia Is this a current diagnosis for this admission?: YesSummary: Improved patient does require 2 L oxygen per minute with exercise. He will be discharged home with home oxygen therapy. (2) COPD exacerbation Is this a current diagnosis for this admission?: YesSummary: Continue nebulizers and steroid taper (3) Diabetes mellitus type 2 in nonobese Is this a current diagnosis for this admission?: YesSummary: Continue home medications (4) Skin ulcer of left great toe Is this a current diagnosis for this admission?: YesSummary: Follow up with wound care (5) Basal pneumonia of both lungs Is this a current diagnosis for this admission?: YesSummary: Complete course of antibiotic therapy (6) History of implantable cardioverter-defibrillator (ICD) placement Is this a current diagnosis for this admission?: YesSummary: 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 Patient will follow up with his coke drawer at [facility] (7) DNR (do not resuscitate) Is this a current diagnosis for this admission?: YesSummary: Per patient's request - Additional Information Resuscitation Status: Do Not Resuscitate Discharge Diet: Cardiac Discharge Activity: Activity As Tolerated, Balance Activity w/Rest Home Medications: Aspirin [Aspirin 81 mg Chewable Tablet] 81 mg PO DAILY 12/01/11 Tamsulosin HCl 0.4 mg PO DAILY 12/01/11 Isosorbide Mononitrate [Imdur] 30 mg PO DAILY 01/29/12 Dutasteride 0.5 mg PO DAILY 10/04/16 Glipizide [Glipizide Xl] 5 mg PO DAILY 10/04/16 Mirabegron [Myrbetriq] 50 mg PO DAILY 10/04/16 Nitroglycerin [Nitrostat] 0.4 mg SL ASDIR PRN 10/04/16 Oxybutynin Chloride 5 mg PO QHS 10/04/16 Potassium Chloride [K-Tab ER] 10 meq PO DAILY 10/04/16 Albuterol Sulfate [Ventolin 0.083% Neb 2.5 mg/3 mL Ampul] 2.5 mg NEB RTQ4HP PRN vial.neb 10/07/16 Azithromycin [Zithromax 250 mg Tablet] 500 mg PO DAILY #5 tablet 10/07/16 Cefuroxime Axetil [Ceftin 250 mg Tablet] 250 mg PO BID #14 tablet 10/07/16 Prednisone [Deltasone 20 mg Tablet] 40 mg PO DAILY #3 tablet 10/07/16 History of Present Illness Patient complains of: Shortness of breath and dyspnea History of Present Illness: OG CASTELLANOS is a 85 year old male with underlying non-home O2 dependent COPD, coronary artery disease, status post previous SD, and status post pericardiectomy in 2003, along with obstructive sleep apnea, with patient being noncompliant with CPAP, who presents to the emergency room for evaluation of approximately 24 hour history of slowly progressive difficulty breathing, in particular with much of any exertion. No subjective fever or chills, but when paramedics arrived, his temperature was 100.9. He does admit to a dry cough, but denies nausea vomiting, chest or abdominal pain, diarrhea or dysuria. No leg pain or swelling. Received bronchodilator treatments along with Solu-Medrol in route by EMS but was still in fairly significant respiratory distress upon arrival. However, he has improved nicely with further treatment, including application of BiPAP. Currently resting quietly, pain-free. Hospital Course Hospital Course: OG CASTELLANOS is a 85 year old male with underlying non-home O2 dependent COPD, coronary artery disease, status post previous SD, and status post pericardiectomy in 2003, along with obstructive sleep apnea, with patient being noncompliant with CPAP, who presents to the emergency room for evaluation of approximately 24 hour history of slowly progressive difficulty breathing, in particular with much of any exertion. No subjective fever or chills, but when paramedics arrived, his temperature was 100.9. He does admit to a dry cough, but denies nausea vomiting, chest or abdominal pain, diarrhea or dysuria. No leg pain or swelling. He was found to be hypoxemic with room air oxygen saturation of 84%. He has no prior history of home oxygen use. He was referred to the hospitalist service for admission. He was started on IV broad- spectrum antibiotics after cultures were obtained. He was admitted to the IMCU unit on telemetry. He was started on IV steroid taper as well. CTA of the chest and abdomen were obtained which showed indeterminate nodule of the right upper lobe.. The diameter of this nodule is 1.5 cm. He small multiple indeterminate nodules in both lungs as well. We discussed the need for PET scan with his primary care provider and and pulmonary follow-up. Dr. Lutz, cardiology, saw the patient in consult. Patient underwent pacemaker/ defibrillator interrogation. This revealed end-of-life battery within the next 3-6 months. Patient states he has a chirping sound at the same time each night co he will follow-up with his coke drawer Dr. Brewster, his coke drawer at [facility]. Today he feels much improved. He states his breathing is much easier back to baseline. He was found to be slightly hypoxemic with exercise still. His room air oxygen saturation at rest was 92% with exercise 86%. This improved to 93% with oxygen at 2 L/min. Physical Exam Vital Signs: Temp Pulse Resp BP Pulse Ox 98.0 F 60 16 122/81 95 10/07/16 11:08 10/07/16 14:33 10/07/16 14:33 10/07/16 11:08 10/07/16 14:33 Intake & Output 10/06/16 10/07/16 10/08/16 06:59 06:59 06:59 Intake Total 2550 1852 375 Output Total 1955 1500 400 Balance 595 352 -25 Weight 82.9 kg General appearance: PRESENT: no acute distress, well-developed, well-nourished Head exam: PRESENT: atraumatic, normocephalic Eye exam: PRESENT: conjunctiva pink, EOMI, PERRLA. ABSENT: scleral icterus Ear exam: PRESENT: normal external ear exam Mouth exam: PRESENT: moist, tongue midline Neck exam: ABSENT: carotid bruit, JVD, lymphadenopathy, thyromegaly Respiratory exam: PRESENT: clear to auscultation barb. ABSENT: rales, rhonchi, wheezes Cardiovascular exam: PRESENT: RRR. ABSENT: diastolic murmur, rubs, systolic murmur Pulses: PRESENT: normal dorsalis pedis pul Vascular exam: PRESENT: normal capillary refill GI/Abdominal exam: PRESENT: normal bowel sounds, soft. ABSENT: distended, guarding, mass, organolmegaly, rebound, tenderness Rectal exam: PRESENT: deferred Extremities exam: PRESENT: full ROM. ABSENT: calf tenderness, clubbing, pedal edema Musculoskeletal exam: PRESENT: ambulatory, full ROM Neurological exam: PRESENT: alert, awake, oriented to person, oriented to place , oriented to time, oriented to situation, CN II-XII grossly intact. ABSENT: motor sensory deficit Psychiatric exam: PRESENT: anxious Skin exam: PRESENT: dry, intact, warm. ABSENT: cyanosis, rash Results Laboratory Results: 10/06/16 04:23 10/06/16 04:23 Impressions: Chest X-Ray 10/06/16 06:00 IMPRESSION: Patchy airspace densities in the lower lung crockett as noted above which has the appearance of an acute process superimposed on chronic underlying changes. Other findings as noted above Chest/Abdomen CTA 10/06/16 10:51 IMPRESSION: Indeterminate nodule right upper lobe, deep to the right 4th rib areas outpatient PET-CT recommended for follow-up. No acute pulmonary infiltrates. No pleural effusion. No pneumothorax. COPD. Qualifiers PATEINT BEING DISCHARGED WITH ANY OF THE FOLLOWING DIAGNOSIS?: No Plan Discharge Plan: Home with family, portable oxygen was obtained by case management prior to discharge Time Spent: Less than 30 Minutes
[2016-10-07 16:46] VITALS: BP 156/84
--- NOTE | 2016-10-07 19:41 | PDOC CONSULTATION ---
Consultation Consult Date: 10/07/16 Consult reason:: Cardiolgy Follow up , and SOB History of Present Illness Admission Date/PCP: 10/04/16 04:52 DARLING JIMENES MD Past Medical History Cardiac Medical History: Reports: Coronary Artery Disease, Myocardial Infarction - 12/02, stent placement, Hyperlipidema, Hypertension Denies: Atrial Fibrillation, Congestive Heart Failure, DVT, Pulmonary Embolism Pulmonary Medical History: Reports: Chronic Obstructive Pulmonary Disease (COPD) , Sleep Apnea - Noncompliant with CPAP Denies: Asthma, Tuberculosis EENT Medical History: Reports: Eyes - Wears glasses, Other - Easy bruising Denies: Ears, Throat Neurological Medical History: Denies: Hemorrhagic CVA, Ischemic CVA, Seizures Endocrine Medical History: Reports: Diabetes Mellitus Type 2 Denies: Diabetes Mellitus Type 1, Hyperthyroidism, Hypothyroidism Malignancy Medical History: Reports: Skin Cancer GI Medical History: Denies: Cirrhosis, Gastroesophageal Reflux Disease, Hepatitis, Peptic Ulcer Disease Musculoskeltal Medical History: Denies: Arthritis Skin Medical History: Reports: Other - Recently excised skin cancer. Psychiatric Medical History: Denies: Alcohol Dependency, Depression, General Anxiety Disorder, Substance Abuse, Tobacco Dependency Hematology: Reports: Other - Easy bruising Infectious Medical History: Denies: Clostridium Difficile, Hepatitis B, Hepatitis C, Methicillin- Resistant Staph Aureus Past Surgical History Past Surgical History: Reports: Cholecystectomy, Coronary Stent, Pacemaker - Pacemaker defibrillator, Tonsillectomy, Other - Pericardectomy 2003 Social History Lives with: Family Smoking Status: Former Smoker Frequency of Alcohol Use: None Hx Recreational Drug Use: No Drugs: None Hx Prescription Drug Abuse: No - Advance Directive Resuscitation Status: Do Not Resuscitate Family History Family History: Reviewed & Not Pertinent Medication/Allergy Home Medications: Aspirin [Aspirin 81 mg Chewable Tablet] 81 mg PO DAILY 12/01/11 Tamsulosin HCl 0.4 mg PO DAILY 12/01/11 Isosorbide Mononitrate [Imdur] 30 mg PO DAILY 01/29/12 Dutasteride 0.5 mg PO DAILY 10/04/16 Glipizide [Glipizide Xl] 5 mg PO DAILY 10/04/16 Mirabegron [Myrbetriq] 50 mg PO DAILY 10/04/16 Nitroglycerin [Nitrostat] 0.4 mg SL ASDIR PRN 10/04/16 Oxybutynin Chloride 5 mg PO QHS 10/04/16 Potassium Chloride [K-Tab ER] 10 meq PO DAILY 10/04/16 Albuterol Sulfate [Ventolin 0.083% Neb 2.5 mg/3 mL Ampul] 2.5 mg NEB RTQ4HP PRN vial.neb 10/07/16 Azithromycin [Zithromax 250 mg Tablet] 500 mg PO DAILY #5 tablet 10/07/16 Cefuroxime Axetil [Ceftin 250 mg Tablet] 250 mg PO BID #14 tablet 10/07/16 Prednisone [Deltasone 20 mg Tablet] 40 mg PO DAILY #3 tablet 10/07/16 Allergies/Adverse Reactions: No Known Allergies Allergy (Verified 10/04/16 02:54) Physical Exam Vital Signs: Temp Pulse Resp BP Pulse Ox 98.3 F 60 16 156/84 H 95 10/07/16 16:44 10/07/16 16:44 10/07/16 16:44 10/07/16 16:44 10/07/16 16:44 Intake & Output 10/06/16 10/07/16 10/08/16 06:59 06:59 06:59 Intake Total 2550 1852 975 Output Total 1955 1500 1075 Balance 595 352 -100 Weight 82.9 kg Results Laboratory Results: 10/06/16 04:23 10/06/16 04:23 Impressions: Chest X-Ray 10/06/16 06:00 IMPRESSION: Patchy airspace densities in the lower lung crockett as noted above which has the appearance of an acute process superimposed on chronic underlying changes. Other findings as noted above Chest/Abdomen CTA 10/06/16 10:51 IMPRESSION: Indeterminate nodule right upper lobe, deep to the right 4th rib areas outpatient PET-CT recommended for follow-up. No acute pulmonary infiltrates. No pleural effusion. No pneumothorax. COPD.
== END 2016-10-07 19:01 | disposition home health service (06) | DRG 871 ==
LOC: ER 01:50 → UNDOADMIN 03:21 → EH 03:21 → 3N 07:33
PROVIDERS: ADMIT Family Medicine; ATTEND Family Medicine
PROC: 5A09357 Assistance with Respiratory Ventilation, Less than 24 Consecutive Hours, Continuous Positive Airway Pressure (ICD-10-PCS; principal; 2016-10-04)
PROC: 3E0F73Z Introduction of Anti-inflammatory into Respiratory Tract, Via Natural or Artificial Opening (ICD-10-PCS; 2016-10-04)
DX: A41.9 Sepsis, unspecified organism (principal); J18.9 Pneumonia, unspecified organism; J96.21 Acute and chronic respiratory failure with hypoxia; J44.1 Chronic obstructive pulmonary disease with (acute) exacerbation; E11.9 Type 2 diabetes mellitus without complications; L97.529 Non-pressure chronic ulcer of other part of left foot with unspecified severity; I25.10 Atherosclerotic heart disease of native coronary artery without angina pectoris; G47.33 Obstructive sleep apnea (adult) (pediatric); I10 Essential (primary) hypertension; E78.5 Hyperlipidemia, unspecified; R65.20 Severe sepsis without septic shock; I25.2 Old myocardial infarction; Z90.49 Acquired absence of other specified parts of digestive tract; Z79.899 Other long term (current) drug therapy; Z66 Do not resuscitate; Z99.81 Dependence on supplemental oxygen; Z95.0 Presence of cardiac pacemaker; Z91.19 Patient's noncompliance with other medical treatment and regimen; Z95.5 Presence of coronary angioplasty implant and graft; Z87.891 Personal history of nicotine dependence; Z85.828 Personal history of other malignant neoplasm of skin; Z82.3 Family history of stroke
CPT/HCPCS: 36415; 71010; 71020; 71275; 80048; 80053; 82550; 82553; 82803; 82962; 83735; 84484; 85025; 87040; 93005; 93010; 93306; 94640; 94660; 94668; 96365; 99285; J0456; J0696; J1650; J1815; J1940; J1956; J3475; J3490; J7060; J7512; J7620

== ENCOUNTER → 2017-08-28 | Outpatient (CLI) | payer MEDICARE ==
--- NOTE | 2017-08-28 10:46 | RADIOLOGY REPORT (SQ) ---
EXAM DESCRIPTION: U/S RETROPERITON (RENAL/AORTA) COMPLETED DATE/TIME: 08/28/2017 10:00 am REASON FOR STUDY: PROTEINURIA, UNSPECIFIED R80.9 PROTEINURIA, UNSPECIFIED COMPARISON: None. TECHNIQUE: Dynamic and static grayscale images acquired of the kidneys and bladder and recorded on P ACS. Additional selected color Doppler and spectral images recorded. LIMITATIONS: None. FINDINGS: RIGHT KIDNEY: Normal size, 12.3 cm. There are small areas of cortical thinning or scarrin g. Normal echogenicity. No solid or suspicious masses. No hydronephrosis. No calcifications. LEFT KIDNEY: Normal size, 11.4 cm. There are small areas of cortical thinning or scarring. Normal e chogenicity. No solid or suspicious masses. No hydronephrosis. No calcifications. BLADDER: No masses. OTHER FINDINGS: Prostate gland is prominent measuring 4.4 x 4.4 x 4 cm. IMPRESSION: There are small areas of cortical thinning or scarring in both kidneys. The prostate gl and is prominent. TECHNICAL DOCUMENTATION: JOB ID: [id number] [email or web address]- All Rights Reserved Reading location - IP/workstation name: [email or web address]
== END ==
LOC: RAD 09:22
PROVIDERS: ATTEND Urology
DX: R80.9 Proteinuria, unspecified (principal)
CPT/HCPCS: 76770

== ENCOUNTER 2017-10-14 17:31 | Inpatient (IN) | payer MEDICARE ==
--- NOTE | 2017-10-14 18:21 | ER Document Report ---
ED General - General Chief Complaint: Shortness Of Breath Stated Complaint: ANXIETY Time Seen by Provider: 10/14/17 18:06 Mode of Arrival: Ambulatory Information source: Patient Notes: 86-year-old man with a history of oxygen dependent COPD, coronary artery disease , sleep apnea who presents to the emergency room with shortness of breath, unable to sleep, dyspnea on exertion. EMS noted a O2 saturation of 89% on room air. Note: Patient's son states that he was started on Lexapro 3 days ago and the patient seems to have gotten significantly more agitated over the past 3 days. This seems to be making his COPD worse and may be a component. TRAVEL OUTSIDE OF THE [place] IN LAST 30 DAYS: No - HPI Onset: Last week Onset/Duration: Gradual Quality of pain: No pain Severity: None Pain Level: Denies Associated symptoms: Shortness of breath. denies: Chest pain, Fever Exacerbated by: Movement Relieved by: Remaining still Similar symptoms previously: No Recently seen / treated by doctor: No - Related Data Allergies/Adverse Reactions: No Known Allergies Allergy (Verified 10/14/17 18:12) Past Medical History - General Information source: Patient - Social History Smoking Status: Former Smoker Cigarette use (# per day): No Chew tobacco use (# tins/day): No Frequency of alcohol use: None Drug Abuse: None Lives with: Family Family History: Reviewed & Not Pertinent Patient has suicidal ideation: No Patient has homicidal ideation: No - Past Medical History Cardiac Medical History: Reports: Hx Coronary Artery Disease, Hx Heart Attack - 12/02, stent placement, Hx Hypercholesterolemia, Hx Hypertension Denies: Hx Atrial Fibrillation, Hx Congestive Heart Failure, Hx DVT, Hx Pulmonary Embolism Pulmonary Medical History: Reports: Hx COPD, Hx Sleep Apnea - Noncompliant with CPAP Denies: Hx Asthma, Hx Tuberculosis Neurological Medical History: Denies: Hx Seizures Endocrine Medical History: Reports: Hx Diabetes Mellitus Type 2. Denies: Hx Diabetes Mellitus Type 1, Hx Hyperthyroidism, Hx Hypothyroidism Renal/ Medical History: Denies: Hx Peritoneal Dialysis Malignancy Medical History: Reports Hx Skin Cancer GI Medical History: Denies: Hx Cirrhosis, Hx Gastroesophageal Reflux Disease, Hx Hepatitis Musculoskeletal Medical History: Denies Hx Arthritis Psychiatric Medical History: Denies: Hx Depression Infectious Medical History: Denies: Hx C-Diff, Hx Hepatitis, Hx MRSA Past Surgical History: Reports: Hx Cardiac Surgery - pacemaker, Hx Cholecystectomy, Hx Coronary Stent, Hx Pacemaker - Pacemaker defibrillator, Hx Tonsillectomy, Other - Pericardectomy 2004 - Immunizations Hx Diphtheria, Pertussis, Tetanus Vaccination: No Review of Systems - Review of Systems Constitutional: denies: Chills, Fever EENT: No symptoms reported Cardiovascular: No symptoms reported Respiratory: See HPI Gastrointestinal: No symptoms reported Genitourinary: No symptoms reported Male Genitourinary: No symptoms reported Musculoskeletal: No symptoms reported Skin: No symptoms reported Hematologic/Lymphatic: No symptoms reported Neurological/Psychological: Anxiety, Other - Depression Physical Exam - Vital signs Vitals: Pulse Ox 98 10/14/17 17:35 Notes: Physical exam: GENERAL: A 6-year-old man, alert and oriented 3, does appear short of breath HEAD: Atraumatic, normocephalic. EYES: Pupils equal round and reactive to light, extraocular movements intact, sclera anicteric, conjunctiva are normal. ENT: TMs normal, nares patent, oropharynx clear without exudates. Moist mucous membranes. NECK: Normal range of motion, supple without obvious mass or JVD. LUNGS: Wheezing and rhonchi bilaterally HEART: Regular rate and rhythm without murmurs, rubs or gallops. ABDOMEN: Soft, normoactive bowel sounds. No tenderness to palpation. No guarding, no rebound. No masses appreciated. EXTREMITIES: Normal range of motion, no pitting or edema. No clubbing or cyanosis. NEUROLOGICAL: Cranial nerves II through XII grossly intact. Normal speech, moving all extremities. PSYCH: Normal mood, normal affect. SKIN: Warm, Dry, normal turgor, no rashes or lesions noted. Course - Re-evaluation Re-evalutation: 10/14/17 20:11 Plan: Treat COPD exacerbation: iv steroids, nebulizers, IV magnesium. Additionally, the plan will be to withhold the Lexapro given the suggestion of an adverse medicine reaction. - Vital Signs Vital signs: Temp Pulse Resp BP Pulse Ox 97.8 F 59 L 16 166/68 H 95 10/15/17 00:57 10/15/17 00:57 10/15/17 00:57 10/15/17 00:57 10/15/17 00:57 - Laboratory Result Diagrams: 10/14/17 17:45 10/14/17 17:45 Laboratory results interpreted by me: 10/14/17 10/14/17 10/14/17 17:45 17:45 17:45 RBC 5.83 H RDW 15.7 H Seg Neutrophils % 82.0 H Lymphocytes % 9.2 L Total Bilirubin 1.6 H NT-Pro-B Natriuret Pep 4970 H - Diagnostic Test Radiology reviewed: Image reviewed, Reports reviewed - Chronic interstitial changes - EKG Interpretation by Me Rhythm: Other - Paced rhythm with a ventricular rate of 64, baseline artifact Discharge - Discharge Clinical Impression: COPD exacerbation, ADVERSE MEDICINE REACTION Condition: Stable Disposition: ADMITTED INPATIENT Admitting Provider: Hospitalist - Dr. Nickerson Unit Admitted: Telemetry
[2017-10-14 18:40] LABS: ABSOLUTE LYMPHOCYTES (AUTO) 0.9 10^3/uL (0.5-4.7); ABSOLUTE MONOCYTES (AUTO) 0.8 10^3/uL (0.1-1.4); ABSOLUTE NEUT (AUTO) 7.9 10^3/uL (1.7-8.2); BASOPHILS % (AUTO) 0.4 % (0-2); EOSINOPHILS % (AUTO) 0.4 % (0-6); HEMATOCRIT 49.1 % (37.9-51.0); HEMOGLOBIN 16.7 g/dL (13.5-17.0); LYMPHOCYTES % (AUTO) 9.2 % (13-45); MEAN CORPUSCULAR HEMOGLOBIN 28.7 pg (27.0-33.4); MEAN CORPUSCULAR HGB CONC 34.1 g/dL (32.0-36.0); MEAN CORPUSCULAR VOLUME 84 fl (80-97); PLATELET COUNT 201 10^3/uL (150-450); RED BLOOD COUNT 5.83 10^6/uL (4.35-5.55); RED CELL DISTRIBUTION WIDTH 15.7 % (11.5-14.0); TOTAL CELLS COUNTED % (AUTO) 100 %; WHITE BLOOD COUNT 9.6 10^3/uL (4.0-10.5)
--- NOTE | 2017-10-14 18:50 | RADIOLOGY REPORT (SQ) ---
EXAM DESCRIPTION: CHEST SINGLE VIEW COMPLETED DATE/TIME: 10/14/2017 6:40 pm REASON FOR STUDY: sob COMPARISON: 10/06/2016 EXAM PARAMETERS: NUMBER OF VIEWS: One view. TECHNIQUE: Single frontal radiographic view of the chest acquired. RADIATION DOSE: NA LIMITATIONS: None. FINDINGS: LUNGS AND PLEURA: Significant improvement in aeration of the lungs bilaterally. Minimal r esidual interstitial lung markings in the lung bases bilaterally. The lungs are otherwise clear. MEDIASTINUM AND HILAR STRUCTURES: Unchanged HEART AND VASCULAR STRUCTURES: Unchanged BONES: No acute findings. HARDWARE: Stable left chest wall cardiac device and leads. OTHER: No other significant finding. IMPRESSION: Interval improvement in by a lateral airspace opacities seen on prior examination. Mini mal residual interstitial lung opacities may be chronic in nature or may represent mild pulmonary olinda ma. TECHNICAL DOCUMENTATION: JOB ID: [id number] [employer]- All Rights Reserved Reading location - IP/workstation name: [email or web address]
[2017-10-14 18:51] LABS: ALANINE AMINOTRANSFERASE 39 U/L (21-72); ALBUMIN 4.1 g/dL (3.5-5.0); ALKALINE PHOSPHATASE 106 U/L (38-126); ANION GAP 14 (5-19); ASPARTATE AMINO TRANSFERASE 36 U/L (17-59); BILIRUBIN,DIRECT 0.4 mg/dL (0.0-0.4); BILIRUBIN,TOTAL 1.6 mg/dL (0.2-1.3); BLOOD UREA NITROGEN 16 mg/dL (7-20); CALCIUM 9.6 mg/dL (8.4-10.2); CARBON DIOXIDE 25 mmol/L (22-30); CHLORIDE 103 mmol/L (98-107); CREATINE KINASE 56 U/L (55-170); GLUCOSE 90 mg/dL (75-110); POTASSIUM 4.6 mmol/L (3.6-5.0); SODIUM 142.4 mmol/L (137-145); TOTAL PROTEIN 7.5 g/dL (6.3-8.2)
[2017-10-14 19:01] LABS: CREATINE KINASE MB 2.75 ng/mL (<4.55); TROPONIN I 0.031 ng/mL
[2017-10-14] MEDS ORDERED: IPRATROPIUM/ALBUTEROL 0.5-2.5 MG/3 ML AMPUL NEB ONE (19:07)
[2017-10-14] MEDS ORDERED: MAGNESIUM SULFATE/D5W 1 GM/100 ML RTUPB IV ONE (19:07)
[2017-10-14] MEDS ORDERED: METHYLPREDNISOLONE INJ 125 MG/2 ML SDV IV ONE (19:42)
[2017-10-14] MEDS ORDERED: ZOLPIDEM TARTRATE 5 MG TABLET PO ONE (19:56)
[2017-10-14] MEDS ORDERED: ALBUTEROL SULFATE 0.083% NEB 2.5 MG/3 ML AMPUL NEB ONE (20:06)
[2017-10-14] MEDS ORDERED: MAG HYDROX/AL HYDROX/SIMETH SUSP 30 ML UDCUP PO PRN (21:37)
[2017-10-14] MEDS ORDERED: LEVALBUTEROL HCL NEB 0.63 MG/3 ML AMPUL NEB PRN (21:37)
[2017-10-14] MEDS ORDERED: ACETAMINOPHEN 325 MG TABLET PO PRN (21:37)
--- NOTE | 2017-10-14 23:05 | EKG REPORT ---
SEVERITY:- ABNORMAL ECG - VENTRICULAR-PACED COMPLEXES UNDERLYING ATRIAL FLUTTER / FIBRILLATION : Confirmed by: Fifi Capone MD 14-Oct-2017 23:04:01
[2017-10-14] MEDS: MIRTAZAPINE 15 MG TABLET PO SCH (23:13)
[2017-10-14] MEDS: METHYLPREDNISOLONE INJ 40 MG/1 ML SDV IV SCH (23:14)
[2017-10-15 00:21] LABS: ARTERIAL BLOOD BASE EXCESS -3.4 mmol/L; ARTERIAL BLOOD FIO2 1.5L; ARTERIAL BLOOD H2CO3 0.86 mmol/L (1.05-1.35); ARTERIAL BLOOD HCO3 19.2 mmol/L (20-26); ARTERIAL BLOOD O2 SATURATION 95.5 % (94-98); ARTERIAL BLOOD PCO2 28.7 mmHg (35-45); ARTERIAL BLOOD PH 7.44 (7.35-7.45); ARTERIAL BLOOD PO2 73.3 mmHg (80-100); ARTERIAL BLOOD TOTAL CO2 20.1 mmol/L (23-27)
[2017-10-15] MEDS ORDERED: DEXTROSE 40% GEL 15 GM TUBE PO PRN ×2 (03:40)
[2017-10-15] MEDS ORDERED: GLUCAGON,HUMAN RECOMB 1 MG INJ IM PRN (03:40)
[2017-10-15] MEDS ORDERED: INSULIN REG, HUMAN 100 UNIT/ML 3 ML VIAL (PYX) SUBCUT PRN (03:40)
[2017-10-15] MEDS ORDERED: DEXTROSE 50%-WATER 25 GM/50 ML DISP.SYRIN IV PRN ×2 (03:40)
--- NOTE | 2017-10-15 03:45 | PDOC H&P ---
History of Present Illness Admission Date/PCP: 10/14/17 20:25 MECCA NOLAN MD Patient complains of: Shortness of breath History of Present Illness: OG CASTELLANOS is a 86 year old male with history of COPD oxygen dependent at 2 L at home, comes to the emergency department complaining of progressive shortness of breath, has been unable to sleep and eat for the last 3 days. Patient's son states that he was a started on Lexapro 3 days ago and the patient has been more agitated. Patient denies to me worsening cough, sputum, wheezing but he is evidently wheezing. Denies fever, chills, nausea, vomiting, chest pain, abdominal pain, changes on his bowels urine. When EMS arrived patient was significantly hypoxic at 89% on room air. Patient has obstructive sleep apnea using CPAP at night. VBG 7.40 07/18/72 BMP 4870, and orders to compare to Chest x-ray similar to prior, no acute infiltrates. In the ED given IV Solu- Medrol, nebulizer treatments and IV magnesium. Past Medical History Cardiac Medical History: Reports: Coronary Artery Disease, Myocardial Infarction - 12/02, stent placement, Hyperlipidema, Hypertension Denies: Atrial Fibrillation, Congestive Heart Failure, DVT, Pulmonary Embolism Pulmonary Medical History: Reports: Chronic Obstructive Pulmonary Disease (COPD) , Sleep Apnea - Noncompliant with CPAP Denies: Asthma, Tuberculosis Neurological Medical History: Denies: Seizures Endocrine Medical History: Reports: Diabetes Mellitus Type 2 Denies: Diabetes Mellitus Type 1, Hyperthyroidism, Hypothyroidism Malignancy Medical History: Reports: Skin Cancer GI Medical History: Denies: Cirrhosis, Gastroesophageal Reflux Disease, Hepatitis Musculoskeltal Medical History: Denies: Arthritis Psychiatric Medical History: Denies: Depression Infectious Medical History: Denies: Clostridium Difficile, Methicillin-Resistant Staph Aureus Past Surgical History Past Surgical History: Reports: Cholecystectomy, Coronary Stent, Pacemaker - Pacemaker defibrillator, Tonsillectomy, Other - Pericardectomy 2003 Social History Smoking Status: Former Smoker Frequency of Alcohol Use: None Hx Recreational Drug Use: No Drugs: None Hx Prescription Drug Abuse: No - Advance Directive Resuscitation Status: Do Not Resuscitate Family History Family History: Reviewed & Not Pertinent Parental Family History Reviewed: No Children Family History Reviewed: NA Sibling(s) Family History Reviewed.: NA Medication/Allergy Home Medications: Atorvastatin Calcium [Lipitor 80 mg Tablet] 40 mg PO QHS 10/14/17 Buspirone HCl [Buspar 5 mg Tablet] 5 mg PO Q12 10/14/17 Escitalopram Oxalate [Lexapro 10 mg Tablet] 10 mg PO DAILY 10/14/17 Glipizide [Glipizide ER] 5 mg PO DAILY 10/14/17 Insulin Detemir [Levemir Flextouch] 25 units SQ QAM 10/14/17 Isosorbide Mononitrate [Isosorbide Mononitrate ER] 30 mg PO DAILY 10/14/17 Nebivolol HCl [Bystolic] 5 mg PO DAILY 10/14/17 Potassium Chloride [K-Tab ER] 20 meq PO DAILY 10/14/17 Tamsulosin HCl [Flomax 0.4 mg Cap.sr] 0.4 mg PO DAILY 10/14/17 Allergies/Adverse Reactions: No Known Allergies Allergy (Verified 10/14/17 18:12) Review of Systems Review of Systems: As outlined in HPI, all others negative Physical Exam Vital Signs: Temp Pulse Resp BP Pulse Ox 97.8 F 59 L 16 166/68 H 95 10/15/17 00:57 10/15/17 00:57 10/15/17 00:57 10/15/17 00:57 10/15/17 00:57 Additional comments: General appearance: Elderly, well-nourished, alert and cooperative, and appears to be in no acute distress, wearing nasal cannula. Head: Normocephalic Eyes: PEERL, EOMI, vision is grossly intact. Ears: External auditory canal and tympanic membranes clear, hearing grossly intact. Nose: No nasal discharge. Throat: Oral cavity and pharynx normal. No inflammation, swelling, exudate or lesions. Neck: Neck supple, nontender without lymphadenopathy, masses or thyromegaly. Cardiac: Normal S1 and S2. No S3, S4 or murmurs. Rhythm is regular. There is no peripheral edema, cyanosis or pallor. Extremities are warm and well perfused. Capillary refill is less than 2 seconds. No carotid bruits. Lungs: Bilateral decreased breath sounds, coarse diffuse crackles, expiratory wheezing and rhonchi. Not using accessory muscles. Abdomen: Positive bowel sounds. Soft. Nondistended, nontender. No guarding or rebound. No masses. No hepatosplenomegaly Extremities: No significant deformity or joint abnormality. No edema. Peripheral pulses intact. No varicosities. Neurological: Cranial nerves II through XII grossly intact. Strength and sensation symmetric and intact throughout. Reflexes 2+ throughout. Skin: Skin normal color, texture and turgor with no lesions or eruptions, warm and dry. Psychiatric: The mental examination revealed the patient was oriented to person , place, and partially in time. Results Laboratory Results: 10/14/17 23:45 Carbonic Acid 0.86 L HCO3/H2CO3 Ratio 22:1 ABG pH 7.44 ABG pCO2 28.7 L ABG pO2 73.3 L ABG HCO3 19.2 L ABG O2 Saturation 95.5 ABG Base Excess -3.4 FiO2 1.5L 10/15/17 00:34 Troponin I 0.021 01/26/17 10/14/17 10/14/17 14:03 17:45 17:45 WBC 9.6 RBC 5.83 H Hgb 16.7 Hct 49.1 MCV 84 MCH 28.7 MCHC 34.1 RDW 15.7 H Plt Count 201 Seg Neutrophils % 82.0 H Lymphocytes % 9.2 L Monocytes % 8.0 Eosinophils % 0.4 Basophils % 0.4 Absolute Neutrophils 7.9 Absolute Lymphocytes 0.9 Absolute Monocytes 0.8 Absolute Eosinophils 0.0 Absolute Basophils 0.0 ABG pH ABG pCO2 ABG pO2 ABG O2 Saturation Sodium 142.4 Potassium 4.6 Chloride 103 Carbon Dioxide 25 Anion Gap 14 BUN 16 Creatinine 0.87 Est GFR ( Amer) > 60 Est GFR (Non-Af Amer) > 60 Glucose 90 Calcium 9.6 Magnesium Total Bilirubin 1.6 H Direct Bilirubin 0.4 AST 36 ALT 39 Alkaline Phosphatase 106 Creatine Kinase 56 Troponin I 0.024 NT-Pro-B Natriuret Pep Total Protein 7.5 Albumin 4.1 10/14/17 10/14/17 10/14/17 17:45 17:45 17:45 WBC RBC Hgb Hct MCV MCH MCHC RDW Plt Count Seg Neutrophils % Lymphocytes % Monocytes % Eosinophils % Basophils % Absolute Neutrophils Absolute Lymphocytes Absolute Monocytes Absolute Eosinophils Absolute Basophils ABG pH ABG pCO2 ABG pO2 ABG O2 Saturation Sodium Potassium Chloride Carbon Dioxide Anion Gap BUN Creatinine Est GFR ( Amer) Est GFR (Non-Af Amer) Glucose Calcium Magnesium 1.8 Total Bilirubin Direct Bilirubin AST ALT Alkaline Phosphatase Creatine Kinase Troponin I 0.031 NT-Pro-B Natriuret Pep 4970 H Total Protein Albumin 10/14/17 10/15/17 23:45 00:34 WBC RBC Hgb Hct MCV MCH MCHC RDW Plt Count Seg Neutrophils % Lymphocytes % Monocytes % Eosinophils % Basophils % Absolute Neutrophils Absolute Lymphocytes Absolute Monocytes Absolute Eosinophils Absolute Basophils ABG pH 7.44 ABG pCO2 28.7 L ABG pO2 73.3 L ABG O2 Saturation 95.5 Sodium Potassium Chloride Carbon Dioxide Anion Gap BUN Creatinine Est GFR ( Amer) Est GFR (Non-Af Amer) Glucose Calcium Magnesium Total Bilirubin Direct Bilirubin AST ALT Alkaline Phosphatase Creatine Kinase Troponin I 0.021 NT-Pro-B Natriuret Pep Total Protein Albumin Impressions: Chest X-Ray 10/14/17 18:18 IMPRESSION: Interval improvement in by a lateral airspace opacities seen on prior examination. Minimal residual interstitial lung opacities may be chronic in nature or may represent mild pulmonary edema. Assessment & Plan - Diagnosis (1) Acute and chronic respiratory failure with hypoxia Is this a current diagnosis for this admission?: Yes Plan: Patient has chronic respiratory failure on 2 L oxygen at home, unknown when the patient was not wearing his oxygen but was saturating 89%, has been having progressive respiratory symptoms for the last few days, likely secondary to COPD exacerbation. We will give the patient under telemetry monitoring. IV steroids with Solu-Medrol. DuoNeb nebulizer treatments as needed with levalbuterol as very agitated with albuterol. RT consult. Incentive spirometry. CPAP at night. Chest x-ray negative. (2) COPD exacerbation Is this a current diagnosis for this admission?: Yes Plan: As per assessment #1, patient quit smoking 7 years ago (3) CAD (coronary artery disease) Qualifiers: Coronary Disease-Associated Artery/Lesion type: kaibab artery Is this a current diagnosis for this admission?: Yes Plan: Continue with aspirin, isosorbide, nitroglycerin as needed (5) Diabetes mellitus type 2 in nonobese Is this a current diagnosis for this admission?: Yes Plan: We will continue with glipizide, Accu-Cheks q. before meals and at bedtime, insulin lispro sliding scale and hypoglycemia protocol. (7) Agitation Is this a current diagnosis for this admission?: Yes Plan: Patient has a started Lexapro 3 days ago, patient is very concerned as she hasn' t been eating or drinking, likely advanced effect of the medication. Will place it on hold. - Time Time Spent: 30 to 50 Minutes - Inpatient Certification Based on my medical assessment, after consideration of the patient's comorbidities, presenting symptoms, or acuity I expect that the services needed warrant INPATIENT care.: Yes I certify that my determination is in accordance with my understanding of Medicare's requirements for reasonable and necessary INPATIENT services [42 CFR 412.3e].: Yes Medical Necessity: Risk of Complication if Not Cared For in Hospital
[2017-10-15] MEDS: METHYLPREDNISOLONE INJ 40 MG/1 ML SDV IV SCH ×3 (06:43→22:21)
[2017-10-15 07:11] LABS: HEMATOCRIT 44.4 % (37.9-51.0); HEMOGLOBIN 15.1 g/dL (13.5-17.0); MEAN CORPUSCULAR HEMOGLOBIN 28.6 pg (27.0-33.4); MEAN CORPUSCULAR HGB CONC 33.9 g/dL (32.0-36.0); MEAN CORPUSCULAR VOLUME 84 fl (80-97); PLATELET COUNT 153 10^3/uL (150-450); RED BLOOD COUNT 5.26 10^6/uL (4.35-5.55); RED CELL DISTRIBUTION WIDTH 15.7 % (11.5-14.0); WHITE BLOOD COUNT 6.6 10^3/uL (4.0-10.5)
[2017-10-15 07:22] LABS: ANION GAP 13 (5-19); BLOOD UREA NITROGEN 16 mg/dL (7-20); CALCIUM 9.1 mg/dL (8.4-10.2); CARBON DIOXIDE 22 mmol/L (22-30); CHLORIDE 104 mmol/L (98-107); GLUCOSE 299 mg/dL (75-110); PHOSPHORUS 3.7 mg/dL (2.5-4.5); POTASSIUM 4.6 mmol/L (3.6-5.0); SODIUM 139.4 mmol/L (137-145)
[2017-10-15 08:00] LABS: ABSOLUTE LYMPHOCYTES# (MANUAL) 0.2 10^3/uL (0.5-4.7); ABSOLUTE MONOCYTES # (MANUAL) 0.1 10^3/uL (0.1-1.4); ABSOLUTE NEUTROPHILS# (MANUAL) 6.3 10^3/uL (1.7-8.2); ANISOCYTOSIS SLIGHT; BASOPHILS % (MANUAL) 0 % (0-2); EOSINOPHILS % (MANUAL) 0 % (0-6); HYPOCHROMASIA SLIGHT; LYMPHOCYTES % (MANUAL) 3 % (13-45); MONOCYTES % (MANUAL) 2 % (3-13); PLATELET COMMENT ADEQUATE; POLYCHROMASIA SLIGHT; SEGMENTED NEUTROPHILS % (MAN) 95 % (42-78); TOTAL CELLS COUNTED 100; TOXIC GRANULATION SLIGHT
[2017-10-15] MEDS: TAMSULOSIN HCL 0.4 MG CAP.SR.24H PO SCH (10:16)
[2017-10-15] MEDS: GLIPIZIDE XL 5 MG TAB.ER.24 PO SCH (10:16)
[2017-10-15] MEDS: NEBIVOLOL HCL 5 MG TABLET PO SCH (10:16)
[2017-10-15] MEDS: ISOSORBIDE MONONITRATE 30 MG TAB.ER.24H PO SCH (10:17)
[2017-10-15] MEDS: BUSPIRONE HCL 10 MG TABLET PO SCH ×2 (10:18→22:22)
[2017-10-15] MEDS: INSULIN DETEMIR 100 UNIT/ML 3 ML PEN SUBCUT SCH (10:21)
[2017-10-15] MEDS: ENOXAPARIN SODIUM INJ 40 MG/0.4 ML DISP.SYRIN SUBCUT SCH (10:22)
[2017-10-15] MEDS: POTASSIUM CHLORIDE 10 MEQ CAPSULE.ER PO SCH (10:27)
[2017-10-15] MEDS: AZITHROMYCIN 500 MG in DEXTROSE 5%-WATER 250 ML IV SCH (13:23)
--- NOTE | 2017-10-15 17:13 | PDOC PROGRESS REPORT ---
Subjective Progress Note for:: 10/15/17 Subjective:: His breathing was not even something that he talked about is something bothering him. He mainly wanted to talk about the fact that he has lost much weight in the last couple of months, that his is sick and needs total care at home, that it is very hard for him to take care of her because he is oxygen dependent and that he cannot afford to put her into a senior care. He said he has thought about killing himself but then he said if he did it would be worse for his and so he decided he was not willing to do that. I asked him if he had a plan he said that he would shoot himself. I then asked him if he had any guns in the house and he said no, he had gotten rid of them all. He said he really wants just something to help him sleep at night. Reason For Visit: COPD EXACERBATION Physical Exam Vital Signs: Temp Pulse Resp BP Pulse Ox 97.4 F 61 18 144/79 H 92 10/15/17 12:00 10/15/17 12:00 10/15/17 12:00 10/15/17 12:00 10/15/17 12:00 Intake & Output 10/14/17 10/15/17 10/16/17 06:59 06:59 06:59 Intake Total 500 150 Output Total 950 Balance -450 150 Weight 75.8 kg General appearance: PRESENT: no acute distress, cooperative Teeth exam: PRESENT: poor dentation Respiratory exam: PRESENT: decreased breath sounds, unlabored. ABSENT: rales, rhonchi, wheezes Cardiovascular exam: PRESENT: RRR. ABSENT: systolic murmur GI/Abdominal exam: PRESENT: normal bowel sounds, soft. ABSENT: guarding, rebound, tenderness Extremities exam: ABSENT: clubbing, pedal edema Musculoskeletal exam: PRESENT: normal inspection. ABSENT: deformity Neurological exam: PRESENT: alert, awake, oriented to person, oriented to place , oriented to time, oriented to situation Psychiatric exam: PRESENT: depressed Skin exam: PRESENT: dry, warm Results Laboratory Results: 10/15/17 06:35 10/15/17 06:35 10/14/17 10/15/17 10/15/17 23:45 06:35 06:35 WBC 6.6 RBC 5.26 Hgb 15.1 Hct 44.4 MCV 84 MCH 28.6 MCHC 33.9 RDW 15.7 H Plt Count 153 Seg Neutrophils % Not Reportable Lymphocytes % Not Reportable Monocytes % Not Reportable Eosinophils % Not Reportable Basophils % Not Reportable Absolute Neutrophils Not Reportable Absolute Lymphocytes Not Reportable Absolute Monocytes Not Reportable Absolute Eosinophils Not Reportable Absolute Basophils Not Reportable Carbonic Acid 0.86 L HCO3/H2CO3 Ratio 22:1 ABG pH 7.44 ABG pCO2 28.7 L ABG pO2 73.3 L ABG HCO3 19.2 L ABG O2 Saturation 95.5 ABG Base Excess -3.4 FiO2 1.5L Sodium 139.4 Potassium 4.6 Chloride 104 Carbon Dioxide 22 Anion Gap 13 BUN 16 Creatinine 0.69 Est GFR ( Amer) > 60 Est GFR (Non-Af Amer) > 60 Glucose 299 H Calcium 9.1 Phosphorus 3.7 Magnesium 2.0 10/15/17 00:34 Troponin I 0.021 Impressions: Chest X-Ray 10/14/17 18:18 IMPRESSION: Interval improvement in by a lateral airspace opacities seen on prior examination. Minimal residual interstitial lung opacities may be chronic in nature or may represent mild pulmonary edema. Assessment & Plan - Diagnosis (1) COPD exacerbation Is this a current diagnosis for this admission?: Yes Plan: I do not know if he was wheezing on admission, but if he was, this issue has resolved. (2) Chronic hypoxemic respiratory failure Is this a current diagnosis for this admission?: Yes Plan: Stable on his usual 2 L nasal cannula (3) Major depressive episode Is this a current diagnosis for this admission?: Yes Plan: He has depressed mood most of the day nearly every day. He has lost of interest or pleasure in most or all activities nearly every day. He has insomnia nearly every day. He has had a significant weight loss with decreased appetite nearly every day for the last few months. He has fatigue and low energy nearly every day. He has had recurrent thoughts of or suicidal ideation. I placed a consult for Dr. Oneill. He has some Remeron at night to help him sleep. He was started on BuSpar on admission, and I do not know if that really appropriate for him now, but I will wait to Dr. Oneill sees him to see what recommendation she makes. - Time Time Spent with patient: 25-34 minutes
[2017-10-15] MEDS: MIRTAZAPINE 15 MG TABLET PO SCH (22:21)
[2017-10-15] MEDS: ATORVASTATIN CALCIUM 80 MG TABLET PO SCH (22:21)
[2017-10-16] MEDS: METHYLPREDNISOLONE INJ 40 MG/1 ML SDV IV SCH ×3 (06:22→21:01)
[2017-10-16] MEDS: INSULIN DETEMIR 100 UNIT/ML 3 ML PEN SUBCUT SCH (09:34)
[2017-10-16] MEDS: BUSPIRONE HCL 10 MG TABLET PO SCH ×2 (09:35→21:00)
[2017-10-16] MEDS: ISOSORBIDE MONONITRATE 30 MG TAB.ER.24H PO SCH (09:35)
[2017-10-16] MEDS: ENOXAPARIN SODIUM INJ 40 MG/0.4 ML DISP.SYRIN SUBCUT SCH (09:35)
[2017-10-16] MEDS: NEBIVOLOL HCL 5 MG TABLET PO SCH (09:35)
[2017-10-16] MEDS: POTASSIUM CHLORIDE 10 MEQ CAPSULE.ER PO SCH (09:36)
[2017-10-16] MEDS: GLIPIZIDE XL 5 MG TAB.ER.24 PO SCH (09:37)
[2017-10-16] MEDS: TAMSULOSIN HCL 0.4 MG CAP.SR.24H PO SCH (09:37)
[2017-10-16] MEDS: AZITHROMYCIN 500 MG in DEXTROSE 5%-WATER 250 ML IV SCH (09:45)
--- NOTE | 2017-10-16 17:08 | PDOC PROGRESS REPORT ---
Subjective Progress Note for:: 10/16/17 Subjective:: No adverse events overnight. No new complaints. He said he slept pretty well last night. He was given some Remeron. He has been able to take the oxygen off , but he says he only does that because it starts to irritate his skin behind his ears if he leaves it on for too long. Reason For Visit: COPD EXACERBATION Physical Exam Vital Signs: Temp Pulse Resp BP Pulse Ox 97.7 F 62 14 179/83 H 94 10/16/17 08:00 10/16/17 12:33 10/16/17 12:33 10/16/17 08:00 10/16/17 12:33 Intake & Output 10/15/17 10/16/17 10/17/17 06:59 06:59 06:59 Intake Total 500 1265 Output Total 950 350 Balance -450 915 Weight 75.8 kg 71.2 kg General appearance: PRESENT: no acute distress, cooperative Teeth exam: PRESENT: poor dentation Respiratory exam: PRESENT: decreased breath sounds, unlabored. ABSENT: rales, rhonchi, wheezes Cardiovascular exam: PRESENT: RRR. ABSENT: systolic murmur GI/Abdominal exam: PRESENT: normal bowel sounds, soft. ABSENT: guarding, rebound, tenderness Extremities exam: ABSENT: clubbing, pedal edema Musculoskeletal exam: PRESENT: normal inspection. ABSENT: deformity Neurological exam: PRESENT: alert, awake, oriented to person, oriented to place , oriented to time, oriented to situation Psychiatric exam: PRESENT: depressed Skin exam: PRESENT: dry, warm Results Laboratory Results: 10/15/17 06:35 10/15/17 06:35 10/15/17 00:34 Troponin I 0.021 Impressions: Chest X-Ray 10/14/17 18:18 IMPRESSION: Interval improvement in by a lateral airspace opacities seen on prior examination. Minimal residual interstitial lung opacities may be chronic in nature or may represent mild pulmonary edema. Assessment & Plan - Diagnosis (1) COPD exacerbation Is this a current diagnosis for this admission?: Yes Plan: I do not know if he was wheezing on admission, but if he was, this issue has resolved. (2) Chronic hypoxemic respiratory failure Is this a current diagnosis for this admission?: Yes Plan: Stable on his usual 2 L nasal cannula (3) Major depressive episode Is this a current diagnosis for this admission?: Yes Plan: He has depressed mood most of the day nearly every day. He has lost of interest or pleasure in most or all activities nearly every day. He has insomnia nearly every day. He has had a significant weight loss with decreased appetite nearly every day for the last few months. He has fatigue and low energy nearly every day. He has had recurrent thoughts of or suicidal ideation. I placed a consult for Dr. Oneill. He has some Remeron at night to help him sleep. He was started on BuSpar on admission, and I do not know if that really appropriate for him now, but I will wait to Dr. Oneill sees him to see what recommendation she makes. - Time Time Spent with patient: 15-24 minutes
[2017-10-16] MEDS: ATORVASTATIN CALCIUM 80 MG TABLET PO SCH (21:00)
[2017-10-16] MEDS: MIRTAZAPINE 15 MG TABLET PO SCH (21:00)
[2017-10-16] MEDS ORDERED: ZOLPIDEM TARTRATE 5 MG TABLET PO ONE (23:30)
[2017-10-17] MEDS: METHYLPREDNISOLONE INJ 40 MG/1 ML SDV IV SCH ×3 (06:42→21:29)
[2017-10-17] MEDS: INSULIN DETEMIR 100 UNIT/ML 3 ML PEN SUBCUT SCH (08:02)
[2017-10-17] MEDS: BUSPIRONE HCL 10 MG TABLET PO SCH ×2 (09:53→21:31)
[2017-10-17] MEDS: NEBIVOLOL HCL 5 MG TABLET PO SCH (09:53)
[2017-10-17] MEDS: POTASSIUM CHLORIDE 10 MEQ CAPSULE.ER PO SCH (09:54)
[2017-10-17] MEDS: GLIPIZIDE XL 5 MG TAB.ER.24 PO SCH (09:54)
[2017-10-17] MEDS: ISOSORBIDE MONONITRATE 30 MG TAB.ER.24H PO SCH (09:54)
[2017-10-17] MEDS: TAMSULOSIN HCL 0.4 MG CAP.SR.24H PO SCH (09:54)
[2017-10-17] MEDS: ENOXAPARIN SODIUM INJ 40 MG/0.4 ML DISP.SYRIN SUBCUT SCH (10:02)
[2017-10-17] MEDS: AZITHROMYCIN 500 MG in DEXTROSE 5%-WATER 250 ML IV SCH (10:02)
--- NOTE | 2017-10-17 18:02 | PDOC PROGRESS REPORT ---
Subjective Progress Note for:: 10/17/17 Subjective:: No adverse events overnight. No new complaints. He said he took the Remeron last night but after couple hours he woke up and is asking if he can have Ambien back instead. His breathing is been fairly comfortable. He said he has not seen the psychologist yet. Reason For Visit: COPD EXACERBATION Physical Exam Vital Signs: Temp Pulse Resp BP Pulse Ox 98.4 F 62 18 154/94 H 96 10/17/17 16:00 10/17/17 16:00 10/17/17 16:00 10/17/17 16:00 10/17/17 16:00 Intake & Output 10/16/17 10/17/17 10/18/17 06:59 06:59 06:59 Intake Total 1265 1100 Output Total 350 Balance 915 1100 Weight 71.2 kg 71.6 kg General appearance: PRESENT: no acute distress, cooperative Teeth exam: PRESENT: poor dentation Respiratory exam: PRESENT: decreased breath sounds, unlabored. ABSENT: rales, rhonchi, wheezes Cardiovascular exam: PRESENT: RRR. ABSENT: systolic murmur GI/Abdominal exam: PRESENT: normal bowel sounds, soft. ABSENT: guarding, rebound, tenderness Extremities exam: ABSENT: clubbing, pedal edema Musculoskeletal exam: PRESENT: normal inspection. ABSENT: deformity Neurological exam: PRESENT: alert, awake, oriented to person, oriented to place , oriented to time, oriented to situation Psychiatric exam: PRESENT: depressed Skin exam: PRESENT: dry, warm Results Laboratory Results: 10/15/17 06:35 10/15/17 06:35 10/15/17 00:34 Troponin I 0.021 Impressions: Chest X-Ray 10/14/17 18:18 IMPRESSION: Interval improvement in by a lateral airspace opacities seen on prior examination. Minimal residual interstitial lung opacities may be chronic in nature or may represent mild pulmonary edema. Assessment & Plan - Diagnosis (1) COPD exacerbation Is this a current diagnosis for this admission?: Yes Plan: I do not know if he was wheezing on admission, but if he was, this issue has resolved. (2) Chronic hypoxemic respiratory failure Is this a current diagnosis for this admission?: Yes Plan: Stable on his usual 2 L nasal cannula (3) Major depressive episode Is this a current diagnosis for this admission?: Yes Plan: He has depressed mood most of the day nearly every day. He has lost of interest or pleasure in most or all activities nearly every day. He has insomnia nearly every day. He has had a significant weight loss with decreased appetite nearly every day for the last few months. He has fatigue and low energy nearly every day. He has had recurrent thoughts of or suicidal ideation. I placed a consult for Dr. Oneill. He has some Remeron at night to help him sleep. He was started on BuSpar on admission, and I do not know if that really appropriate for him now, but I will wait to Dr. Oneill sees him to see what recommendation she makes. Still awaiting the consultation. - Time Time Spent with patient: 15-24 minutes
[2017-10-17] MEDS: ATORVASTATIN CALCIUM 80 MG TABLET PO SCH (21:29)
[2017-10-17] MEDS: MIRTAZAPINE 15 MG TABLET PO SCH (21:30)
[2017-10-17] MEDS: CLONIDINE HCL 0.1 MG TABLET PO PRN (21:30)
[2017-10-17] MEDS ORDERED: ZOLPIDEM TARTRATE 5 MG TABLET PO SCH (22:00)
[2017-10-18] MEDS: METHYLPREDNISOLONE INJ 40 MG/1 ML SDV IV SCH (05:46)
[2017-10-18] MEDS: INSULIN DETEMIR 100 UNIT/ML 3 ML PEN SUBCUT SCH (08:46)
[2017-10-18] MEDS: GLIPIZIDE XL 5 MG TAB.ER.24 PO SCH (09:04)
[2017-10-18] MEDS: TAMSULOSIN HCL 0.4 MG CAP.SR.24H PO SCH (09:04)
[2017-10-18] MEDS: BUSPIRONE HCL 10 MG TABLET PO SCH ×2 (09:04→21:16)
[2017-10-18] MEDS: NEBIVOLOL HCL 5 MG TABLET PO SCH (09:04)
[2017-10-18] MEDS: ENOXAPARIN SODIUM INJ 40 MG/0.4 ML DISP.SYRIN SUBCUT SCH (09:05)
[2017-10-18] MEDS: ISOSORBIDE MONONITRATE 30 MG TAB.ER.24H PO SCH (09:05)
[2017-10-18] MEDS: POTASSIUM CHLORIDE 10 MEQ CAPSULE.ER PO SCH (09:05)
[2017-10-18] MEDS: AZITHROMYCIN 500 MG in DEXTROSE 5%-WATER 250 ML IV SCH (09:05)
[2017-10-18] MEDS ORDERED: DIVALPROEX SODIUM 250 MG TABLET.DR PO ONE (12:00)
--- NOTE | 2017-10-18 17:14 | PDOC PROGRESS REPORT ---
Subjective Progress Note for:: 10/18/17 Subjective:: Respiratory standpoint, he has been doing fine. His breathing has been at its baseline he has not been hypoxemic. Apparently behavioral health came to talk to him yesterday and he would not open up to them about any of the things he had said to me, and they cut the interview short because he would not interact with them. He tells me he is worried about things getting done, like checking his mail and buys groceries and cutting his grass, and then has to take care of his . His granddaughter was here, and she says that he has got a caregiver in the house 30 hours a week, and that she has made arrangements for someone else to be there for another 6 hours a day. He perseverates on having a pill to help him sleep, but I told him that no matter what drugs he received, all of his problems would still be there, and I will monitor him that he has a lot more support and help at home than most people his situation have. He grudgingly admitted as much. Reason For Visit: COPD EXACERBATION Physical Exam Vital Signs: Temp Pulse Resp BP Pulse Ox 97.7 F 59 L 18 146/73 H 98 10/18/17 15:56 10/18/17 15:56 10/18/17 15:56 10/18/17 15:56 10/18/17 15:56 Intake & Output 10/17/17 10/18/17 10/19/17 06:59 06:59 06:59 Intake Total 1100 1902 Balance 1100 1902 Weight 71.6 kg General appearance: PRESENT: no acute distress, cooperative Teeth exam: PRESENT: poor dentation Respiratory exam: PRESENT: decreased breath sounds, unlabored. ABSENT: rales, rhonchi, wheezes Cardiovascular exam: PRESENT: RRR. ABSENT: systolic murmur GI/Abdominal exam: PRESENT: normal bowel sounds, soft. ABSENT: guarding, rebound, tenderness Extremities exam: ABSENT: clubbing, pedal edema Musculoskeletal exam: PRESENT: normal inspection. ABSENT: deformity Neurological exam: PRESENT: alert, awake, oriented to person, oriented to place , oriented to time, oriented to situation Psychiatric exam: PRESENT: depressed Skin exam: PRESENT: dry, warm Results Laboratory Results: 10/15/17 06:35 10/15/17 06:35 10/15/17 00:34 Troponin I 0.021 Impressions: Chest X-Ray 10/14/17 18:18 IMPRESSION: Interval improvement in by a lateral airspace opacities seen on prior examination. Minimal residual interstitial lung opacities may be chronic in nature or may represent mild pulmonary edema. Assessment & Plan - Diagnosis (1) COPD exacerbation Is this a current diagnosis for this admission?: Yes Plan: I do not know if he was wheezing on admission, but if he was, this issue has resolved. (2) Chronic hypoxemic respiratory failure Is this a current diagnosis for this admission?: Yes Plan: Stable on his usual 2 L nasal cannula (3) Major depressive episode Is this a current diagnosis for this admission?: Yes Plan: He has depressed mood most of the day nearly every day. He has lost of interest or pleasure in most or all activities nearly every day. He has insomnia nearly every day. He has had a significant weight loss with decreased appetite nearly every day for the last few months. He has fatigue and low energy nearly every day. He has had recurrent thoughts of or suicidal ideation. Behavioral health saw him and made some medication recommendations but the patient would not really talk to them very much otherwise. I told him that was him to call them back and that he really needs to talk to them, and he agreed to do so. - Time Time Spent with patient: 15-24 minutes
--- NOTE | 2017-10-18 17:48 | PSYCHOLOGICAL NOTE ---
Psych Note - Psych Note Psych Note: Psych Note: Met with patient and he declared that he was "sad". Patient did not want to discuss specific details after gentle encouragement from Clinician. Patient states that he is anxious and has thought about killing himself but then says "he is too chicken" to do it. Patient could not articulate a plan or timeframe. Patient is despondent over not being able to take care of his , as he states he is getting older. Patient mentioned that there is someone that comes to the house for 30 hours a week but could not provide any details on if was a caregiver or agency. This Clinician staffed case with the media planner to explore any home health care options that may be available.
--- NOTE | 2017-10-18 17:53 | PSYCHOLOGICAL NOTE ---
Psych Note - Psych Note Psych Note: Psych Note: Medication Recommendations on 10/17/17 Increase Buspar 10mg (total) 2x per day Discontinue Mirtazapine Add Depakote 250 mg 2x per day (if not allergic) Discontinue Zolpidem (ambien) Add Clonidine 0.1mg at bedtime Case staffed with Dr. Oneill
[2017-10-18] MEDS: MIRTAZAPINE 15 MG TABLET PO SCH (21:16)
[2017-10-18] MEDS: CLONIDINE HCL 0.1 MG TABLET PO PRN (21:17)
[2017-10-18] MEDS: ATORVASTATIN CALCIUM 80 MG TABLET PO SCH (21:21)
[2017-10-18] MEDS: DIVALPROEX SODIUM 250 MG TABLET.DR PO SCH (21:22)
[2017-10-19] MEDS: INSULIN DETEMIR 100 UNIT/ML 3 ML PEN SUBCUT SCH (08:00)
[2017-10-19] MEDS: BUSPIRONE HCL 10 MG TABLET PO SCH ×2 (10:53→21:13)
[2017-10-19] MEDS: POTASSIUM CHLORIDE 10 MEQ CAPSULE.ER PO SCH (10:54)
[2017-10-19] MEDS: DIVALPROEX SODIUM 250 MG TABLET.DR PO SCH ×2 (10:59→21:14)
[2017-10-19] MEDS: ISOSORBIDE MONONITRATE 30 MG TAB.ER.24H PO SCH (10:59)
[2017-10-19] MEDS: TAMSULOSIN HCL 0.4 MG CAP.SR.24H PO SCH (11:00)
[2017-10-19] MEDS: NEBIVOLOL HCL 5 MG TABLET PO SCH (11:00)
[2017-10-19] MEDS: GLIPIZIDE XL 5 MG TAB.ER.24 PO SCH (11:00)
[2017-10-19] MEDS: AZITHROMYCIN 500 MG in DEXTROSE 5%-WATER 250 ML IV SCH (11:02)
[2017-10-19] MEDS: ENOXAPARIN SODIUM INJ 40 MG/0.4 ML DISP.SYRIN SUBCUT SCH (11:20)
--- NOTE | 2017-10-19 17:24 | PDOC PROGRESS REPORT ---
Subjective Progress Note for:: 10/19/17 Subjective:: Last night he claimed he had hallucinations from some of the medications which have been started. He asked me today if he needed to go to an inpatient psychiatric facility for a while until he gets "straightened out." He was never very specific about what hallucinations he was having, he just said that he was having them. By report, he never really appeared to be too agitated when he said he was having hallucinations last night. Reason For Visit: COPD EXACERBATION Physical Exam Vital Signs: Temp Pulse Resp BP Pulse Ox 97.5 F 58 L 15 132/61 H 99 10/19/17 15:43 10/19/17 15:43 10/19/17 15:43 10/19/17 15:43 10/19/17 15:43 Intake & Output 10/18/17 10/19/17 10/20/17 06:59 06:59 06:59 Intake Total 1902 1080 250 Balance 1902 1080 250 Weight 71.2 kg General appearance: PRESENT: no acute distress, cooperative Teeth exam: PRESENT: poor dentation Respiratory exam: PRESENT: decreased breath sounds, unlabored. ABSENT: rales, rhonchi, wheezes Cardiovascular exam: PRESENT: RRR. ABSENT: systolic murmur GI/Abdominal exam: PRESENT: normal bowel sounds, soft. ABSENT: guarding, rebound, tenderness Extremities exam: ABSENT: clubbing, pedal edema Musculoskeletal exam: PRESENT: normal inspection. ABSENT: deformity Neurological exam: PRESENT: alert, awake, oriented to person, oriented to place , oriented to time, oriented to situation Psychiatric exam: PRESENT: depressed Skin exam: PRESENT: dry, warm Results Laboratory Results: 10/15/17 06:35 10/15/17 06:35 10/15/17 00:34 Troponin I 0.021 Impressions: Chest X-Ray 10/14/17 18:18 IMPRESSION: Interval improvement in by a lateral airspace opacities seen on prior examination. Minimal residual interstitial lung opacities may be chronic in nature or may represent mild pulmonary edema. Assessment & Plan - Diagnosis (1) COPD exacerbation Is this a current diagnosis for this admission?: Yes Plan: I do not know if he was wheezing on admission, but if he was, this issue has resolved. (2) Chronic hypoxemic respiratory failure Is this a current diagnosis for this admission?: Yes Plan: Stable on his usual 2 L nasal cannula (3) Major depressive episode Is this a current diagnosis for this admission?: Yes Plan: He has depressed mood most of the day nearly every day. He has lost of interest or pleasure in most or all activities nearly every day. He has insomnia nearly every day. He has had a significant weight loss with decreased appetite nearly every day for the last few months. He has fatigue and low energy nearly every day. He has had recurrent thoughts of or suicidal ideation. Behavioral health saw him and made some medication recommendations but the patient would not really talk to them very much otherwise. I told her that I was going to get them back into the room to see him and that he needs to talk to them at that time, and he agreed to do so. I spoke with behavioral health this morning and they said they were going to come see him sometime late this afternoon. There is a possibility that he may be trying to somehow prolong his inpatient stay so that he does not have to go back home and face a lot of the things he says he is worried about. - Time Time Spent with patient: 15-24 minutes
[2017-10-19] MEDS: CLONIDINE HCL 0.1 MG TABLET PO PRN (21:12)
[2017-10-19] MEDS: MIRTAZAPINE 15 MG TABLET PO SCH (21:13)
[2017-10-19] MEDS: ATORVASTATIN CALCIUM 80 MG TABLET PO SCH (21:13)
--- NOTE | 2017-10-20 09:01 | PSYCHOLOGICAL NOTE ---
Psych Note - Psych Note Psych Note: Reason for Consult: depression OG CASTELLANOS is a 86 year old male with history of COPD oxygen dependent at 2 L at home, comes to the emergency department complaining of progressive shortness of breath, has been unable to sleep and eat for the last 3 days. Patient's son states that he was a started on Lexapro 3 days ago and the patient has been more agitated. Clinician conducted check in with patient Patient reports that he has lived a good life but recently he has had an increase in anxiety, difficulty sleeping and depression. 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 He reports that in addition to himself there are home health care that comes to the home to help take care of her; "I want to take care of her but I am unable to... 3 ladies come to help." He states that he feels like there is "no hope." He discloses very difficult for him to feel this way his is never happened to him before. He discloses frustration on his inability to adequately take care of his but do normal everyday things he used to be able to. He discloses that the biggest problem he feels is that he just cannot sleep; "I cannot survive without sleep." Patient denies any history of mental health issues or any previous diagnosis. Patient is alert and orientated to person, place, time and circumstance. Patient's mood is dysphoric with flat affect. Patient maintains good eye contact. Conversational speech is within normal rate, tone and prosody. Delusions are absent and behaviors congruent with intact reality based presentation i.e. organized and linear thought process. Attention and concentration are good. Insight, judgment, impulse control are currently good as evidenced by reaching out and discussing very clearly his thoughts and emotions and engaging with clinician. Medication recommendations per [facility]'s contracted Psychiatrist Dr. Diallo MD are as follows: 1. Please discontinue Mirtazapine as this can increase depression No other changes at this time Diagnosis 311 (F32.9) unspecified Depressive episode V62.89 (Z60.0) Phase of Life Problem Impression/Plan: Patient is recommended to the patient is observed for at least 24 hours during medication changes. Patient is expressing passive suicidal ideation that appears to be directly connected with phase of life concerns and fears. Patient does not meet IVC criteria per [place] GS 122C. Updated medication recommendations have been provided. Dr. Oneill was consulted on the care and management of this patient.
[2017-10-20] MEDS: INSULIN DETEMIR 100 UNIT/ML 3 ML PEN SUBCUT SCH (09:42)
[2017-10-20] MEDS: TAMSULOSIN HCL 0.4 MG CAP.SR.24H PO SCH (10:24)
[2017-10-20] MEDS: POTASSIUM CHLORIDE 10 MEQ CAPSULE.ER PO SCH (10:27)
[2017-10-20] MEDS: BUSPIRONE HCL 10 MG TABLET PO SCH ×2 (10:28→21:14)
[2017-10-20] MEDS: NEBIVOLOL HCL 5 MG TABLET PO SCH (10:30)
[2017-10-20] MEDS: ISOSORBIDE MONONITRATE 30 MG TAB.ER.24H PO SCH (10:31)
[2017-10-20] MEDS: GLIPIZIDE XL 5 MG TAB.ER.24 PO SCH (10:31)
[2017-10-20] MEDS: ENOXAPARIN SODIUM INJ 40 MG/0.4 ML DISP.SYRIN SUBCUT SCH (10:34)
[2017-10-20] MEDS: AZITHROMYCIN 500 MG in DEXTROSE 5%-WATER 250 ML IV SCH (10:37)
[2017-10-20] MEDS: DIVALPROEX SODIUM 250 MG TABLET.DR PO SCH ×2 (10:43→21:14)
--- NOTE | 2017-10-20 17:22 | PDOC PROGRESS REPORT ---
Subjective Progress Note for:: 10/20/17 Subjective:: Mr. Renee was admitted initially for acute exacerbation of COPD. This was treated and has since resolved. However patient developed an acute depressive episode and had suicidal ideations. Upon encounter this morning, patient expressed that his suicidal ideations have been persistent and he did think of killing himself a few minutes before encounter. Patient has not been eating well and has been having hypoglycemic episodes. Reason For Visit: COPD EXACERBATION Physical Exam Vital Signs: Temp Pulse Resp BP Pulse Ox 97.5 F 60 16 144/61 H 95 10/20/17 10:23 10/20/17 10:23 10/20/17 10:23 10/20/17 10:23 10/20/17 10:23 Intake & Output 10/19/17 10/20/17 10/21/17 06:59 06:59 06:59 Intake Total 1080 1373 Balance 1080 1373 Weight 156 lb 15.506 oz 160 lb 0.889 oz General appearance: PRESENT: no acute distress, well-developed, well-nourished Head exam: PRESENT: atraumatic, normocephalic Eye exam: PRESENT: conjunctiva pink, EOMI, PERRLA. ABSENT: scleral icterus Neck exam: ABSENT: carotid bruit, JVD, lymphadenopathy, thyromegaly Respiratory exam: PRESENT: clear to auscultation barb. ABSENT: rales, rhonchi, wheezes Cardiovascular exam: PRESENT: RRR. ABSENT: diastolic murmur, rubs, systolic murmur Pulses: PRESENT: normal dorsalis pedis pul Vascular exam: PRESENT: normal capillary refill GI/Abdominal exam: PRESENT: normal bowel sounds, soft. ABSENT: distended, guarding, mass, organolmegaly, rebound, tenderness Rectal exam: PRESENT: deferred Extremities exam: PRESENT: full ROM. ABSENT: calf tenderness, clubbing, pedal edema Neurological exam: PRESENT: alert, oriented to person, oriented to place, oriented to time Psychiatric exam: PRESENT: anxious, depressed, suicidal ideation Skin exam: PRESENT: dry, intact, warm. ABSENT: cyanosis, rash Results Laboratory Results: 10/15/17 06:35 10/15/17 06:35 10/15/17 00:34 Blood Blood Culture - Final NO GROWTH IN 5 DAYS 10/15/17 00:34 Troponin I 0.021 Impressions: Chest X-Ray 10/14/17 18:18 IMPRESSION: Interval improvement in by a lateral airspace opacities seen on prior examination. Minimal residual interstitial lung opacities may be chronic in nature or may represent mild pulmonary edema. Assessment & Plan - Diagnosis (1) Acute on chronic respiratory failure with hypoxemia Is this a current diagnosis for this admission?: Yes Plan: Secondary to [employer] exacerbation. Resolved. (2) Major depressive episode Is this a current diagnosis for this admission?: Yes Plan: Patient does have suicidal ideation. He was evaluated by psych. Noted recommendations. Discontinue Remeron per psych recommendations. Continue buspirone, Depakote and clonidine for now. Patient has persistent suicidal ideation and will need to go for inpatient psych. (3) Insulin dependent diabetes mellitus Is this a current diagnosis for this admission?: Yes Plan: Patient has insulin-dependent diabetes. However he has not been eating recently. He has developed hypoglycemic episodes warranting glucose administration. We will hold off on insulin at this time. We will continue to monitor his sugars. - Time Time Spent with patient: 25-34 minutes
[2017-10-20] MEDS: ATORVASTATIN CALCIUM 80 MG TABLET PO SCH (21:14)
[2017-10-20] MEDS: CLONIDINE HCL 0.1 MG TABLET PO PRN (21:15)
[2017-10-21] MEDS: PROMETHAZINE HCL INJ 25 MG/1 ML VIAL IV PRN (00:40)
[2017-10-21] MEDS: INSULIN DETEMIR 100 UNIT/ML 3 ML PEN SUBCUT SCH (07:57)
[2017-10-21] MEDS: ENOXAPARIN SODIUM INJ 40 MG/0.4 ML DISP.SYRIN SUBCUT SCH (09:56)
[2017-10-21] MEDS: TAMSULOSIN HCL 0.4 MG CAP.SR.24H PO SCH (09:57)
[2017-10-21] MEDS: BUSPIRONE HCL 10 MG TABLET PO SCH ×2 (09:57→21:34)
[2017-10-21] MEDS: DIVALPROEX SODIUM 250 MG TABLET.DR PO SCH ×2 (09:57→21:35)
[2017-10-21] MEDS: POTASSIUM CHLORIDE 10 MEQ CAPSULE.ER PO SCH (09:57)
[2017-10-21] MEDS: NEBIVOLOL HCL 5 MG TABLET PO SCH (09:58)
[2017-10-21] MEDS: ISOSORBIDE MONONITRATE 30 MG TAB.ER.24H PO SCH (09:58)
[2017-10-21] MEDS: AZITHROMYCIN 500 MG in DEXTROSE 5%-WATER 250 ML IV SCH (09:59)
[2017-10-21] MEDS ORDERED: ALPRAZOLAM 0.25 MG TABLET PO ONE (15:00)
--- NOTE | 2017-10-21 16:06 | PDOC PROGRESS REPORT ---
Subjective Progress Note for:: 10/21/17 Subjective:: Mr. Renee was admitted initially for acute exacerbation of COPD. This was treated and has since resolved. However patient developed an acute depressive episode and had suicidal ideations. Upon encounter this morning, patient denies suicidal ideation. He says that although he had thoughts about killing himself before, he knows that he will not pursue it and he would not do it because of his amanda/anabaptist. He still complains of anxiety but he has been improving in terms of oral intake and has been eating and tolerating diet well. Reason For Visit: COPD EXACERBATION Physical Exam Vital Signs: Temp Pulse Resp BP Pulse Ox 97.8 F 55 L 15 132/63 H 99 10/21/17 15:52 10/21/17 15:52 10/21/17 15:52 10/21/17 15:52 10/21/17 15:52 Intake & Output 10/20/17 10/21/17 10/22/17 06:59 06:59 06:59 Intake Total 1373 684 Balance 1373 684 Weight 160 lb 0.889 oz General appearance: PRESENT: no acute distress Head exam: PRESENT: atraumatic, normocephalic Neck exam: ABSENT: carotid bruit, JVD, lymphadenopathy, thyromegaly Respiratory exam: PRESENT: clear to auscultation barb. ABSENT: rales, rhonchi, wheezes Cardiovascular exam: PRESENT: RRR. ABSENT: diastolic murmur, rubs, systolic murmur Pulses: PRESENT: normal dorsalis pedis pul Vascular exam: PRESENT: normal capillary refill GI/Abdominal exam: PRESENT: normal bowel sounds, soft. ABSENT: distended, guarding, mass, organolmegaly, rebound, tenderness Rectal exam: PRESENT: deferred Extremities exam: PRESENT: full ROM. ABSENT: calf tenderness, clubbing, pedal edema Musculoskeletal exam: PRESENT: ambulatory Neurological exam: PRESENT: alert, awake, oriented to person, oriented to place , oriented to time, oriented to situation, CN II-XII grossly intact. ABSENT: motor sensory deficit Psychiatric exam: PRESENT: anxious, depressed, other - Denies delusions, hallucinations, suicidal or homicidal ideations Skin exam: PRESENT: dry, intact, warm. ABSENT: cyanosis, rash Results Laboratory Results: 10/15/17 06:35 10/15/17 06:35 10/15/17 00:34 Troponin I 0.021 Impressions: Chest X-Ray 10/14/17 18:18 IMPRESSION: Interval improvement in by a lateral airspace opacities seen on prior examination. Minimal residual interstitial lung opacities may be chronic in nature or may represent mild pulmonary edema. Assessment & Plan - Diagnosis (1) Acute on chronic respiratory failure with hypoxemia Is this a current diagnosis for this admission?: Yes Plan: Secondary to COMMODITY [employer]IST exacerbation. Resolved. (2) Major depressive episode Is this a current diagnosis for this admission?: Yes Plan: It appears that patient's suicidal ideations have resolved. Continue buspirone , Depakote and clonidine for now. Discharge planning working on placing patient to [facility]. (3) Insulin dependent diabetes mellitus Is this a current diagnosis for this admission?: Yes Plan: Insulin has been held since yesterday because of hypoglycemic episodes. Will continue to monitor his sugar checks as patient's oral intake has improved. - Time Time Spent with patient: 25-34 minutes
[2017-10-21] MEDS: ATORVASTATIN CALCIUM 80 MG TABLET PO SCH (21:34)
[2017-10-22] MEDS: PROMETHAZINE HCL INJ 25 MG/1 ML VIAL IV PRN (01:32)
[2017-10-22] MEDS: POTASSIUM CHLORIDE 10 MEQ CAPSULE.ER PO SCH (09:50)
[2017-10-22] MEDS: TAMSULOSIN HCL 0.4 MG CAP.SR.24H PO SCH (09:51)
[2017-10-22] MEDS: BUSPIRONE HCL 10 MG TABLET PO SCH (09:51)
[2017-10-22] MEDS: NEBIVOLOL HCL 5 MG TABLET PO SCH (09:52)
[2017-10-22] MEDS: DIVALPROEX SODIUM 250 MG TABLET.DR PO SCH (09:53)
[2017-10-22] MEDS: ISOSORBIDE MONONITRATE 30 MG TAB.ER.24H PO SCH (09:53)
[2017-10-22] MEDS: ENOXAPARIN SODIUM INJ 40 MG/0.4 ML DISP.SYRIN SUBCUT SCH (09:57)
[2017-10-22 12:24] VITALS: BP 132/63
--- NOTE | 2017-11-06 06:39 | PSYCHOLOGICAL NOTE ---
Psych Note - Psych Note Psych Note: Reason for Consult: depression OG CASTELLANOS is a 86 year old male with history of COPD oxygen dependent at 2 L at home, comes to the emergency department complaining of progressive shortness of breath, has been unable to sleep and eat for the last 3 days. Patient's son states that he was a started on Lexapro 3 days ago and the patient has been more agitated. Clinician conducted check in with patient Patient discloses having some difficulties with anxiousness in regards to possible returning home. He reports that sometimes he feels like his head is mixed up and was having conversations with his family he is "jumping inside." Patient states "I just cannot get comfortable with my mind." He reports that he is getting some sleep but "is not enough I need at least 8 hours a night." When discussing about his thoughts of wanting to harm himself he stated "I know I am not going to do anything... I was just seeing it as an avenue out... But you have to understand I am ready to ...But I cannot take my life because it is the Lord's will when I go...so I pray to the Lord that he will take me." Medication recommendations per [facility]'s contracted Psychiatrist Dr. Diallo MD are as follows: No other changes at this time Diagnosis 311 (F32.9) unspecified Depressive episode V62.89 (Z60.0) Phase of Life Problem Impression/Plan: Patient is cleared from acute psychiatric services. Patient is expressing passive suicidal ideation that appears to be directly connected with phase of life concerns and fears. Patient does not meet IVC criteria per [place] GS 122C. Medication recommendations have been implemented. Patient's presentation should continue to improve as the Mirtazapine continues to clear out of his system. Dr. Oneill was consulted on the care and management of this patient. Please reconsult if there is any new concerns that arise.
--- NOTE | 2017-11-21 07:49 | PDOC DISCHARGE SUMMARY ---
General - Admit/Disc Date/PCP Admission Date/Primary Care Provider: 10/14/17 20:25 MECCA NOLAN MD Discharge Date: 10/22/17 - Discharge Diagnosis (1) Acute on chronic respiratory failure with hypoxemia Is this a current diagnosis for this admission?: Yes (2) COPD exacerbation Is this a current diagnosis for this admission?: Yes (3) Major depressive episode Is this a current diagnosis for this admission?: Yes (4) Insulin dependent diabetes mellitus Is this a current diagnosis for this admission?: Yes - Additional Information Resuscitation Status: Do Not Resuscitate Discharge Diet: As Tolerated Discharge Activity: Activity As Tolerated, Balance Activity w/Rest Prescriptions: Albuterol Sulfate [Proair HFA Inhalation Aerosol 8.5 gm MDI] 1 puff IH Q4 PRN # 1 mdi PRN Reason: Buspirone HCl [Buspar 5 mg Tablet] 5 mg PO Q12 30 Days #60 tablet Divalproex Sodium [Depakote ER] 500 mg PO DAILY 30 Days #30 tab.er.24h Fluticasone/Salmeterol [Advair HFA 45-21 mcg Inhaler] 1 puff IH BID #1 mdi Hydroxyzine HCl 10 mg PO RTQ6HP PRN 10 Days #40 tablet PRN Reason: Anxiety Home Medications: Atorvastatin Calcium [Lipitor 80 mg Tablet] 40 mg PO QHS 10/14/17 Glipizide [Glipizide ER] 5 mg PO DAILY 10/14/17 Insulin Detemir [Levemir Flextouch] 25 units SQ QAM 10/14/17 Isosorbide Mononitrate [Isosorbide Mononitrate ER] 30 mg PO DAILY 10/14/17 Nebivolol HCl [Bystolic] 5 mg PO DAILY 10/14/17 Potassium Chloride [K-Tab ER] 20 meq PO DAILY 10/14/17 Tamsulosin HCl [Flomax 0.4 mg Cap.sr] 0.4 mg PO DAILY 10/14/17 Albuterol Sulfate [Proair HFA Inhalation Aerosol 8.5 gm MDI] 1 puff IH Q4 PRN # 1 mdi 10/22/17 Buspirone HCl [Buspar 5 mg Tablet] 5 mg PO Q12 30 Days #60 tablet 10/22/17 Divalproex Sodium [Depakote ER] 500 mg PO DAILY 30 Days #30 tab.er.24h 10/22/17 Fluticasone/Salmeterol [Advair HFA 45-21 mcg Inhaler] 1 puff IH BID #1 mdi 10/22 Hydroxyzine HCl 10 mg PO RTQ6HP PRN 10 Days #40 tablet 10/22/17 History of Present Illness History of Present Illness: OG CASTELLANOS is a 86 year old male with history of COPD oxygen dependent at 2 L at home, comes to the emergency department complaining of progressive shortness of breath, has been unable to sleep and eat for the last 3 days. Patient's son states that he was a started on Lexapro 3 days ago and the patient has been more agitated. Patient denies to me worsening cough, sputum, wheezing but he is evidently wheezing. Denies fever, chills, nausea, vomiting, chest pain, abdominal pain, changes on his bowels urine. When EMS arrived patient was significantly hypoxic at 89% on room air. Patient has obstructive sleep apnea using CPAP at night. VBG 7.40 07/18/72 BMP 4870, and orders to compare to Chest x-ray similar to prior, no acute infiltrates. In the ED given IV Solu- Medrol, nebulizer treatments and IV magnesium. Hospital Course Hospital Course: Mr. Castellanos was admitted initially for acute exacerbation of COPD. This was treated with steroids and breathing treatments and has since resolved. However patient developed an acute depressive episode and had passive suicidal ideations initially. He was evaluated by psych. And his medications were adjusted per psych recommendations and was started on BuSpar and Depakote. Upon reassessment, patient verbalized that although he had thoughts about killing himself before, he knows that he will not pursue it and he would not do it because of his amanda/latter-day. He was not seen by psych to be warranting inpatient psych management/treatment. His insulin regimen was initially suspended because he had poor intake and having hypoglycemic episodes. However over the next couple of days, patient's oral intake improved and sugars also improved. On day of discharge, patient expressed he was likely anxious but feels slightly better. He denied any suicidal or homicidal ideations. He never had any hallucinations or delusions. Physical Exam Vital Signs: Temp Pulse Resp BP Pulse Ox 97.5 F 59 L 18 132/63 H 100 10/22/17 12:19 10/22/17 12:19 10/22/17 12:19 10/22/17 12:19 10/22/17 12:19 Intake & Output 10/21/17 10/22/17 10/23/17 06:59 06:59 06:59 Intake Total 684 991 Balance 684 991 General appearance: PRESENT: no acute distress, well-developed, well-nourished Head exam: PRESENT: atraumatic, normocephalic Eye exam: PRESENT: conjunctiva pink, EOMI, PERRLA. ABSENT: scleral icterus Ear exam: PRESENT: normal external ear exam Mouth exam: PRESENT: moist, tongue midline Neck exam: ABSENT: carotid bruit, JVD, lymphadenopathy, thyromegaly Respiratory exam: PRESENT: clear to auscultation barb. ABSENT: rales, rhonchi, wheezes Cardiovascular exam: PRESENT: RRR. ABSENT: diastolic murmur, rubs, systolic murmur Pulses: PRESENT: normal dorsalis pedis pul Vascular exam: PRESENT: normal capillary refill GI/Abdominal exam: PRESENT: normal bowel sounds, soft. ABSENT: distended, guarding, mass, organolmegaly, rebound, tenderness Rectal exam: PRESENT: deferred Extremities exam: PRESENT: full ROM. ABSENT: calf tenderness, clubbing, pedal edema Musculoskeletal exam: PRESENT: ambulatory Neurological exam: PRESENT: alert, awake, oriented to person, oriented to place , oriented to time, oriented to situation, CN II-XII grossly intact. ABSENT: motor sensory deficit Psychiatric exam: PRESENT: anxious, appropriate affect, other - No homicidal/ suicidal ideations. No delusions or hallucinations. Skin exam: PRESENT: dry, intact, warm. ABSENT: cyanosis, rash Results Laboratory Results: 10/15/17 06:35 10/15/17 06:35 10/15/17 00:34 Troponin I 0.021 Impressions: Chest X-Ray 10/14/17 18:18 IMPRESSION: Interval improvement in by a lateral airspace opacities seen on prior examination. Minimal residual interstitial lung opacities may be chronic in nature or may represent mild pulmonary edema. Qualifiers - * PATIENT BEING DISCHARGED WITH ANY OF THE FOLLOWING DIAGNOSIS: No
== END 2017-10-22 14:35 | disposition home or self-care (01) | DRG 190 ==
LOC: ER 17:31 → EH 20:25 → 4S 22:25
PROVIDERS: ADMIT Internal Medicine; ATTEND Internal Medicine
PROC: 3E0F73Z Introduction of Anti-inflammatory into Respiratory Tract, Via Natural or Artificial Opening (ICD-10-PCS; 2017-10-14)
PROC: 5A09357 Assistance with Respiratory Ventilation, Less than 24 Consecutive Hours, Continuous Positive Airway Pressure (ICD-10-PCS; principal; 2017-10-16)
PROC: 3E0F7GC Introduction of Other Therapeutic Substance into Respiratory Tract, Via Natural or Artificial Opening (ICD-10-PCS; 2017-10-16)
DX: J44.1 Chronic obstructive pulmonary disease with (acute) exacerbation (principal); J96.21 Acute and chronic respiratory failure with hypoxia; E11.9 Type 2 diabetes mellitus without complications; F32.9 Major depressive disorder, single episode, unspecified; G47.33 Obstructive sleep apnea (adult) (pediatric); I25.10 Atherosclerotic heart disease of native coronary artery without angina pectoris; F43.20 Adjustment disorder, unspecified; E78.00 Pure hypercholesterolemia, unspecified; I10 Essential (primary) hypertension; Z66 Do not resuscitate; F41.9 Anxiety disorder, unspecified; Z60.0 Problems of adjustment to life-cycle transitions; I25.2 Old myocardial infarction; Z79.4 Long term (current) use of insulin; Z95.5 Presence of coronary angioplasty implant and graft; Z91.19 Patient's noncompliance with other medical treatment and regimen; Z85.828 Personal history of other malignant neoplasm of skin; Z90.49 Acquired absence of other specified parts of digestive tract; Z95.0 Presence of cardiac pacemaker; Z87.891 Personal history of nicotine dependence; Z99.81 Dependence on supplemental oxygen
CPT/HCPCS: 36415; 36600; 71045; 80048; 80053; 82550; 82553; 82803; 82962; 83735; 83880; 84100; 84484; 85025; 87040; 93005; 93010; 94799; 99285; J0456; J1650; J1815; J2550; J2920; J2930; J3475; J3490; J7060; J7620

== ENCOUNTER 2018-02-12 14:46 | Emergency (ER) | payer MEDICARE ==
--- NOTE | 2018-02-12 15:24 | ER Document Report ---
ED General - General Stated Complaint: WEAKNESS Time Seen by Provider: 02/12/18 14:58 TRAVEL OUTSIDE OF THE [place] IN LAST 30 DAYS: No - HPI Notes: Patient is an 87-year-old male with a history of oxygen dependent COPD, insulin- dependent diabetes, depression, CAD with stent placement and pacer defibrillator , previous CVA who presents to the ED by EMS for complaint of a wet semi- productive cough (yellow/green), decreased p.o. intake, increased weakness over the last 4-5 days. Son is accompanying the patient today and states that he has been primarily in his bed for the last 5 months. Son states that he has also been seeing things and people in the room that are not there. He states that he has had these issues before he was hospitalized several months ago and he was placed on medications at that time which he believes may have made his hallucinations worse. Otherwise, his primary reason for coming today was for the previous complaints. Denies any drug allergies. He is still able to urinate and have normal bowel movements. No other concerns or complaints at this time. Denies any headache, fever, neck pain, changes in vision/speech/ hearing, URI, sore throat, chest pain, palpitations, syncope, cough, shortness of breath, wheeze, dyspnea, abdominal pain, nausea/vomiting/diarrhea, urinary retention, dysuria, hematuria, or rash. - Related Data Allergies/Adverse Reactions: No Known Allergies Allergy (Verified 10/14/17 18:12) Past Medical History - Social History Smoking Status: Unknown if Ever Smoked Family History: Reviewed & Not Pertinent - Past Medical History Cardiac Medical History: Reports: Hx Coronary Artery Disease, Hx Heart Attack - 12/02, stent placement, Hx Hypercholesterolemia, Hx Hypertension Denies: Hx Atrial Fibrillation, Hx Congestive Heart Failure, Hx DVT, Hx Pulmonary Embolism Pulmonary Medical History: Reports: Hx COPD, Hx Sleep Apnea - Noncompliant with CPAP Denies: Hx Asthma, Hx Tuberculosis Neurological Medical History: Denies: Hx Seizures Endocrine Medical History: Reports: Hx Diabetes Mellitus Type 2. Denies: Hx Diabetes Mellitus Type 1, Hx Hyperthyroidism, Hx Hypothyroidism Renal/ Medical History: Denies: Hx Peritoneal Dialysis Malignancy Medical History: Reports Hx Skin Cancer GI Medical History: Denies: Hx Cirrhosis, Hx Gastroesophageal Reflux Disease, Hx Hepatitis Musculoskeletal Medical History: Denies Hx Arthritis Psychiatric Medical History: Denies: Hx Depression Infectious Medical History: Denies: Hx C-Diff, Hx Hepatitis, Hx MRSA Past Surgical History: Reports: Hx Cardiac Surgery - pacemaker, Hx Cholecystectomy, Hx Coronary Stent, Hx Pacemaker - Pacemaker defibrillator, Hx Tonsillectomy, Other - Pericardectomy 2003 - Immunizations Hx Diphtheria, Pertussis, Tetanus Vaccination: No Review of Systems - Review of Systems -: Yes All other systems reviewed and negative Physical Exam - Vital signs Vitals: Resp Pulse Ox 23 H 99 02/12/18 14:58 02/12/18 14:58 - Notes Notes: PHYSICAL EXAMINATION: GENERAL: appears weak, cachectic. No acute resp distress. On O2 via [place]. A& Ox2. Currently baseline per son. HEAD: Atraumatic, normocephalic. EYES: Pupils equal round and reactive to light, extraocular movements intact, sclera anicteric, conjunctiva are normal. ENT: Nares patent and with clear discharge. oropharynx clear without exudates. No tonsilar hypertrophy or erythema. Moist mucous membranes. No airway compromise. NECK: Normal range of motion, supple without lymphadenopathy LUNGS: dec breath sounds b/l with minimal rhonchi. HEART: Regular rate and rhythm without murmurs, rubs, gallops. ABDOMEN: Soft, nontender, nondistended abdomen. No guarding, no rebound. No masses appreciated. Normal bowel sounds present. No CVA tenderness bilaterally. Musculoskeletal: FROM to passive/active. Strength 5+/5. Extremities: No cyanosis, clubbing, or edema b/l. Peripheral pulses 2+. Capillary refill less than 3 seconds. NEUROLOGICAL: NIH 0. GCS 15. Cranial nerves grossly intact. Normal speech. Normal sensory, motor exams. Finger:nose/heel:levy intact. DANIEL's intact. Pronator drift negative. PSYCH: flat affect SKIN: Warm, Dry, normal turgor, no rashes or lesions noted. Course - Re-evaluation Re-evalutation: 02/12/18 16:29 Our Psychology team was consulted for med recs with the report of hallucinations. Son/pt in agreement. 02/12/18 18:38 Patient is an afebrile, well-hydrated, 87-year-old male who presents to the ED with acute exacerbation of COPD, URI, suspect viral. Vitals are acceptable without any significant tachycardia, tachypnea, or hypoxia. PE is otherwise unremarkable. Patient is nontoxic-appearing and is tolerating p.o. without difficulty. Patient is able to ambulate at his baseline with assistance. CBC, CMP, venous blood gas, lactic acid, trop, BNP, EKG, CXR are all acceptable at this time. I was on the phone for 22 minutes with the son discussing this case with him. Son was questioning if it was possible to admit him for a social hold to get him transferred to a possible nursing facility vs continuing what they are doing at home and go through their family doctor. We reviewed the home situation and the patient does have 24-hour nursing assistance as well as physical therapy that comes to his home. He lives with his otherwise. Son states that he does have strong family support and they show up daily to help take care of him as well. I did review with the son that I do not have strong admitting criteria, and it would just be a social hold which our hospitalists usually will not accept. I reviewed with the son that he has all the resources in place as it is and that he could easily talk to the family doctor on Thursday to discuss detention facilities. The son did seem agreeable to this plan. I did review this case with Dr. Cain who is in agreement with discharge/treatment/plan. We will send him home with a Rx for an albuterol inhaler, low dose prednisone, and doxycycline. He did receive prednisone today. Reviewed with the patient that he needs to monitor his sugar closely as we recommend that he be on a steroid, low-dose, over the next 4 days. This was reviewed with the son as well who is in agreement. The son is fully aware of the psychology team recommendations about his medicines, see their note. The medicines he was on may be precipitating his hallucinations as we believe this to be more of a dementia related issue versus psychosis. Low suspicion for any ACS, PE, pneumothorax, dissection, pericardial effusion, sepsis, meningitis, severe dehydration, respiratory compromise, or other systemic emergent condition at this time. Patient and son aware that condition can change from initial presentation and they need to monitor symptoms closely and seek medical attention with any acute changes. Recheck with your PCM on Thursday. Return to the ED with any worsening/concerning symptoms otherwise as reviewed and discharge. Patient and son in agreement. - Vital Signs Vital signs: Temp Pulse Resp BP Pulse Ox 19 117/68 100 02/12/18 18:01 02/12/18 18:01 02/12/18 18:01 - Laboratory Result Diagrams: 02/12/18 15:25 02/12/18 15:25 Laboratory results interpreted by me: 02/12/18 02/12/18 02/12/18 15:25 15:25 15:25 WBC 10.8 H RDW 15.3 H Seg Neutrophils % 80.5 H Lymphocytes % 9.7 L Absolute Neutrophils 8.7 H Sodium 145.3 H Glucose 115 H AST 14 L ALT 18 L NT-Pro-B Natriuret Pep 5460 H Albumin 3.4 L Valproic Acid 29.8 L Discharge - Discharge Clinical Impression: COPD exacerbation, Mental health disorder Condition: Stable Disposition: HOME, SELF-CARE Instructions: Chronic Obstructive Lung Disease ([facility]) Additional Instructions: Maintain adequate fluid intake Take meds as directed tylenol as needed over the counter cold medication as needed for symptoms Humidified air may help Wash your hands regularly Wear a mask when coughing F/u: with your PCM on Thursday for a recheck Return to the ED with any worsening symptoms and/or development of fever, headache, worsening changes in behavior/mentation/vision/speech, chest pain, palpitations, syncope, shortness of breath, trouble breathing, abdominal pain, n /v/d, blood in stool/urine, loss of control of bowel/bladder, urinary retention , muscle weakness/paralysis, saddle anesthesia, numbness/tingling, suicidal/ homicidal thoughts/ideations, or other worsening symptoms that are concerning to you. Our Psychology team's recommendations for your Psych meds: Discontinue Seroquel Discontinue Wellbutrin Depakote 250 mg twice daily BuSpar 10 mg twice daily Clonidine 0.1 mg every evening at bedtime Prescriptions: Albuterol Sulfate [Proair HFA Inhalation Aerosol 8.5 gm MDI] 2 puff IH Q4H PRN # 1 mdi PRN Reason: Doxycycline Hyclate 100 mg PO BID #20 capsule Prednisone [Deltasone 20 mg Tablet] 1 tab PO DAILY #4 tablet Referrals: MECCA NOLAN MD [Primary Care Provider] - 02/15/18 [facility] [Provider Group] - Follow up as needed
[2018-02-12 15:48] LABS: VENOUS BLOOD BASE EXCESS 0.8 mmol/L; VENOUS BLOOD HCO3 26.2 mmol/L (20-32); VENOUS BLOOD PH 7.39 (7.30-7.42)
[2018-02-12 15:50] LABS: ABSOLUTE NEUT (AUTO) 8.7 10^3/uL (1.7-8.2); BASOPHILS % (AUTO) 0.4 % (0-2); EOSINOPHILS % (AUTO) 0.3 % (0-6); HEMOGLOBIN 15.3 g/dL (13.5-17.0); LYMPHOCYTES % (AUTO) 9.7 % (13-45); MEAN CORPUSCULAR HEMOGLOBIN 29.1 pg (27.0-33.4); MEAN CORPUSCULAR HGB CONC 33.9 g/dL (32.0-36.0); MEAN CORPUSCULAR VOLUME 86 fl (80-97); MONOCYTES % (AUTO) 9.1 % (3-13); PLATELET COUNT 205 10^3/uL (150-450); RED BLOOD COUNT 5.25 10^6/uL (4.35-5.55); RED CELL DISTRIBUTION WIDTH 15.3 % (11.5-14.0); SEGMENTED NEUTROPHILS % (AUTO) 80.5 % (42-78); TOTAL CELLS COUNTED % (AUTO) 100 %; WHITE BLOOD COUNT 10.8 10^3/uL (4.0-10.5)
[2018-02-12 16:02] LABS: ALANINE AMINOTRANSFERASE 18 U/L (21-72); ALBUMIN 3.4 g/dL (3.5-5.0); ALKALINE PHOSPHATASE 92 U/L (38-126); ANION GAP 11 (5-19); ASPARTATE AMINO TRANSFERASE 14 U/L (17-59); BILIRUBIN,DIRECT 0.3 mg/dL (0.0-0.4); BILIRUBIN,TOTAL 1.1 mg/dL (0.2-1.3); BLOOD UREA NITROGEN 18 mg/dL (7-20); CALCIUM 9.2 mg/dL (8.4-10.2); CARBON DIOXIDE 27 mmol/L (22-30); CHLORIDE 107 mmol/L (98-107); GLUCOSE 115 mg/dL (75-110); POTASSIUM 4.4 mmol/L (3.6-5.0); SODIUM 145.3 mmol/L (137-145); TOTAL PROTEIN 6.6 g/dL (6.3-8.2)
--- NOTE | 2018-02-12 16:12 | RADIOLOGY REPORT (SQ) ---
EXAM DESCRIPTION: CHEST SINGLE VIEW COMPLETED DATE/TIME: 02/12/2018 4:03 pm REASON FOR STUDY: cough COMPARISON: 10/06/2016 EXAM PARAMETERS: NUMBER OF VIEWS: One view. TECHNIQUE: Single frontal radiographic view of the chest acquired. RADIATION DOSE: NA LIMITATIONS: None. FINDINGS: LUNGS AND PLEURA: Mild chronic interstitial changes. No infiltrate or effusion. No mass. MEDIASTINUM AND HILAR STRUCTURES: No masses. Contour normal. HEART AND VASCULAR STRUCTURES: Heart normal in size. Normal vasculature. BONES: No acute findings. HARDWARE: Pacemaker/defibrillator. Sternotomy wires. OTHER: No other significant finding. IMPRESSION: Chronic lung changes with no acute cardiopulmonary findings. TECHNICAL DOCUMENTATION: JOB ID: [id number] [employer]- All Rights Reserved Reading location - IP/workstation name: [email or web address]
[2018-02-12] MEDS ORDERED: IPRATROPIUM/ALBUTEROL 0.5-2.5 MG/3 ML AMPUL NEB ONE (17:04)
[2018-02-12] MEDS ORDERED: MAGNESIUM SULFATE/D5W 1 GM/100 ML RTUPB IV ONE ×2 (17:05→18:22)
--- NOTE | 2018-02-12 17:07 | PSYCHOLOGICAL NOTE ---
Psych Note - Psych Note Date seen by psych provider: 02/12/18 Time seen by psych provider: 15:30 Psych Note: Reason for Consult: AMS Patient is an 87-year-old male with a history of oxygen dependent COPD, insulin- dependent diabetes, depression, CAD with stent placement and pacer defibrillator , previous CVA who presents to the ED by EMS for complaint of a wet nonproductive cough, decreased p.o. intake, increased weakness over the last 4- 5 days. Patient was able to disclose that he thought he had a stroke so was brought in; "I know I have had a stroke." He reports that today is the day when asked what month it is he said the . Patient identified the year is 1920. Patient was able to correctly identify that yesterday's holiday was . Patient states she was in [place] yesterday at the hospital. Patient's son is at bedside who discloses the patient was not at [place] yesterday. He continued to report that he has seen an increase in delusional thinking and hallucinations and very confused since starting "all these medications." He discloses concern that the patient may be on medications that are interacting negatively with each other. He continued to report that the patient's primary care doctor told him to take 20 units of insulin upon waking up in the morning. He states that he himself is a diabetic and is very concerned with these directions since he was told to take 20 units "no matter what." He reports that he is noticed the changes in his father approximately November (patient was noted to be started by his primary care doctor on Seroquel in November). Patient is alert and orientated to person and place. Mood is euthymic with flat affect. Patient denies suicidal and homicidal ideation. It is very clear the patient is confused and having difficulty forming sentences. Eye contact was well-maintained. Conversational speech was soft and at times difficult to hear. Medication recommendations per [facility]'s contracted psychiatrist Dr. Diallo CALDERON are as follows Discontinue Seroquel Discontinue Wellbutrin Depakote 250 mg twice daily Buspar 10mg twice daily Clonidine 0.1mg every evening at bedtime Impression/Plan: Patient is cleared form acute psychiatric services
[2018-02-12 17:56] LABS: TROPONIN I 0.017 ng/mL
[2018-02-12] MEDS: PREDNISONE 20 MG TABLET PO ONE ×2 (18:23→18:36)
[2018-02-12 18:47] VITALS: BP 117/68
--- NOTE | 2018-02-12 19:17 | EKG REPORT ---
SEVERITY:- ABNORMAL ECG - VENTRICULAR-PACED RHYTHM : Confirmed by: Fifi Capone MD 12-Feb-2018 19:16:41
== END 2018-02-12 19:33 | disposition home or self-care (01) ==
LOC: ER 14:46
DX: J44.1 Chronic obstructive pulmonary disease with (acute) exacerbation (principal); F99 Mental disorder, not otherwise specified; R53.1 Weakness; Z99.81 Dependence on supplemental oxygen; I25.10 Atherosclerotic heart disease of native coronary artery without angina pectoris; I25.2 Old myocardial infarction; I10 Essential (primary) hypertension; E11.9 Type 2 diabetes mellitus without complications
CPT/HCPCS: 93005; 36415; 87040; 83605; 85025; 80053; 84484; 80164; 82803; 83880; 71045; 93010; J3475; A9270; J7512; J7620